=== PATIENT | female | born 1955 ===

== ENCOUNTER 2018-01-24 08:21 | Inpatient (IN) | payer MEDICAID, OTHER ==
[2018-01-24 08:23] VITALS: BMI 28.3
[2018-01-24 08:53] LABS: BASO # 0.1 K/uL (0.0-0.2); BASO % 0.7 % (0.0-2.0); EOS # 0.3 K/uL (0.0-0.7); EOS % 3.3 % (0.0-4.0); LYMPH # 3.5 K/uL (1.0-4.3); LYMPH % 37.2 % (20.0-40.0); MEAN CORPUSCULAR HEMOGLOBIN 24.4 pg (27.0-31.0); MEAN CORPUSCULAR HGB CONC 31.3 g/dL (33.0-37.0); MEAN PLATELET VOLUME 9.7 fL (7.2-11.7); MONO # 0.4 K/uL (0.0-0.8); MONO % 4.4 % (0.0-10.0); NEUT # 5.1 K/uL (1.8-7.0); NEUT % 54.4 % (50.0-75.0); RBC 4.91 Mil/uL (3.80-5.20); RED CELL DISTRIBUTION WIDTH 16.9 % (11.5-14.5); WHITE BLOOD COUNT 9.3 K/uL (4.8-10.8)
[2018-01-24 08:57] LABS: ABG ALLEN TEST POS; ARTERIAL BLOOD GAS HCO3 20.4 mmol/L (21-28); ARTERIAL BLOOD GAS O2 SAT 97.5 % (95-98); ARTERIAL BLOOD GAS PCO2 43 mm/Hg (35-45); ARTERIAL BLOOD GAS PH 7.29 (7.35-7.45); ARTERIAL BLOOD GAS PO2 88 mm/Hg (80-100)
--- NOTE | 2018-01-24 09:01 | C.PDOC ---
History Of Present Illness 62 y/o female presents to the ER complaining of left sided chest pain and shortness of breath which began when she woke up around 7:30 am. Patient states that she was recently admitted to [facility] approximately 1 month ago. Patient reports that she was evaluated by her physician, he told her that " something was wrong" and she underwent cardiac cath which she states was "fine". She also possibly underwent echo, states that they did an ultrasound but does not know the result. During transport, EMS noted that patient was in Aflutter, cardizem given. Denies having fever, chills, nausea, vomiting, and leg swellin g. Time Seen by Provider: 01/24/18 08:28 Chief Complaint (Nursing): Shortness Of Breath History Per: Patient History/Exam Limitations: no limitations Onset/Duration Of Symptoms: Hrs Current Symptoms Are (Timing): Still Present Severity: Moderate Past Medical History Reviewed: Historical Data, Nursing Documentation, Vital Signs Vital Signs: Last Vital Signs Temp 97.8 F 01/24/18 08:24 Pulse 112 H 01/24/18 08:35 Resp 26 H 01/24/18 08:35 BP 124/81 01/24/18 08:35 Pulse Ox 96 01/24/18 08:35 - Medical History PMH: Asthma, HTN Other Surgeries: Hx of surgeries Family History: States: No Known Family Hx - Social History Hx Alcohol Use: No Hx Substance Use: No Review Of Systems Except As Marked, All Systems Reviewed And Found Negative. Constitutional: Negative for: Fever, Chills Cardiovascular: Positive for: Chest Pain Respiratory: Positive for: Shortness of Breath. Negative for: Cough Gastrointestinal: Negative for: Nausea, Vomiting Physical Exam - Physical Exam Appears: Other (tachypneic, moderate respiratory distress) Skin: Normal Color, Warm, Dry Head: Atraumatic, Normacephalic Eye(s): bilateral: Normal Inspection Nose: Normal Oral Mucosa: Moist Neck: Supple Cardiovascular: Rhythm Irregular (tachyycardiac), No Murmur Respiratory: No Rales, Rhonchi (diffuse rhonchi), No Wheezing Gastrointestinal/Abdominal: Normal Exam, Soft, No Tenderness, No Guarding, No Rebound Extremity: No Swelling (leg swelling) Neurological/Psych: Oriented x3, Normal Speech ED Course And Treatment - Laboratory Results Result Diagrams: 01/24/18 08:42 01/24/18 08:42 ECG: Interpreted By Me, Viewed By Me ECG Rhythm: Sinus Tachycardia Interpretation Of ECG: Sinus Tachycardia with LBBB and no concordant ST changes Rate From EC O2 Sat by Pulse Oximetry: 96 (RA) Pulse Ox Interpretation: Normal - Other Rad CXR X-Ray: Viewed By Me, Read By Radiologist Interpretation: Date of service: 01/24/2018. HISTORY: chest pain. COMPARISON: No prior. FINDINGS: LUNGS: Right basilar opacity. Rule out developing pneumonia. Follow-up advised. No other abnormal opacity appreciated. PLEURA: No significant pleural effusion identified, no pneumothorax apparent. CARDIOVASCULAR: Normal. OSSEOUS STRUCTURES: No significant abnormalities. VISUALIZED UPPER ABDOMEN: Normal. OTHER FINDINGS: None. IMPRESSION: Right basilar opacity. Follow-up advised to rule out developing pneumonia. - CT Scan/US CT-Chest Other Rad Studies (CT/US): Read By Radiologist, Radiology Report Reviewed CT/US Interpretation: Date of service: 01/24/2018. CTA chest PE protocol. Indication: dyspnea, tachycardia, elevated d-dimer. Technique: Contiguous axial images were obtained through the chest with intravenous contrast en hancement. Sagittal and coronal reconstructions were generated and reviewed. This CT exam was performed using 1 or more of the following dose reduction techniques: Automated exposure control, adjustment of the MAA and/or kV according to patient size, and/or use of iterative reconstruction technique. IV contrast: 100 mL Visipaque IV. . Radiation dose (DLP): 574.11 MGy-cm. Comparison: Chest x-ray performed 01/24/18. Findings: Visualized portions of the inferior thyroid gland appear unremarkable. The mediastinal and hilar vascular structures appear within normal limits. The heart appears within normal limits of size. Mediastinal and hilar adenopathy measuring up to approximately 1.5 cm in short axis, subcarina. No significant atherosclerotic calcification or mural plaque of the aorta identified. No large central or segmental pulmonary embolus evident. Ground-glass bilateral patchy hazy infiltrates, most prominently involving the bilateral lower and upper lobes with relative sparing of the right middle lobe, suspicious for pneumonia. No pleural effusion. No pneumothorax. 5 mm right lower lobe ground-glass nodule (series 2, image 177). Limited visualized portions of the upper abdomen: Small hiatal hernia. Exophytic 2.5 cm right renal hypodense lesion measures approximately 21 HU, higher than expected for simple cyst. Mild left adrenal gland hypertrophy. Degenerative changes. Impression: No large central or segmental pulmonary embolus identified. Ground-glass patchy bilateral hazy infiltrates suspicious for multifocal pneumonia. Recommend follow-up to ensure complete resolution upon completion of treatment. 5 mm right lower lobe ground-glass nodule. Acco rding to the 2017 Fleischner criteria, no routine follow-up is recommended. Mediastinal and hilar adenopathy measuring up to approximately 1.5 cm in short axis, subcarina. Exophytic 2.5 cm right renal hypodense lesion measures approximately 21 HU, higher than expected for simple cyst. Suggest renal ultrasound for further evaluation. Left adrenal gland hypertrophy. Small hiatal hernia. Medical Decision Making Medical Decision Making: Plan: --Labs --EKG --CXR Labs and CXR done. 500cc NS bolus given. Elevated d-dimer noted, CTA chest done, negative for PE. Early PNA noted on CXR and CTA, zosyn ivpb x1 dose given. Blood cultures drawn prior to abx administration. HR improved to 90's. On re-eval patient states that she feels a little better, but fatigued. Case discussed with Dr. Rodriguez, hospitalist, who accepts patient for admission. Disposition - Disposition Disposition: HOSPITALIZED Disposition Time: 14:00 Condition: FAIR Forms: [facility] ([place]) - Clinical Impression Clinical Impression: Dyspnea, Pneumonia - Scribe Statement The provider has reviewed the documentation as recorded by the Maggie Lombardi Provider Attestation: All medical record entries made by the Bettyibfrandy were at my direction and personally dictated by me. I have reviewed the chart and agree that the record accurately reflects my personal performance of the history, physical exam, medical decision making, and the department course for this patient. I have also personally directed, reviewed, and agree with the discharge instructions and disposition.
[2018-01-24 09:04] LABS: PROTHROMBIN TIME 11.4 SECONDS (9.7-12.2)
--- NOTE | 2018-01-24 09:09 | RAD ---
Date of service: 01/24/2018 HISTORY: chest pain COMPARISON: No prior. FINDINGS: LUNGS: Right basilar opacity. Rule out developing pneumonia. Follow-up advised. No other abnormal opacity appreciated. PLEURA: No significant pleural effusion identified, no pneumothorax apparent. CARDIOVASCULAR: Normal. OSSEOUS STRUCTURES: No significant abnormalities. VISUALIZED UPPER ABDOMEN: Normal. OTHER FINDINGS: None. IMPRESSION: Right basilar opacity. Follow-up advised to rule out developing pneumonia.
[2018-01-24 09:11] LABS: ALB/GLOB RATIO 1.3 (1.0-2.1); ALT/SGPT 34 U/L (9-52); AST/SGOT 38 U/L (14-36); BLOOD UREA NITROGEN 24 mg/dL (7-17); CALCIUM 9.1 mg/dl (8.6-10.4); GFR NON-AFRICAN AMERICAN > 60
[2018-01-24 09:19] LABS: B-TYPE NATRIURETIC PEPTIDE 840 pg/mL (0-900)
[2018-01-24] MEDS ORDERED: Sodium Chloride 0.9% 500 ML IV ONE (09:20)
[2018-01-24] MEDS ORDERED: Iodixanol 320 MG/ML 100 ML BOTTLE IV ONE (12:25)
--- NOTE | 2018-01-24 13:01 | CT ---
Date of service: 01/24/2018 CTA chest PE protocol Indication: dyspnea, tachycardia, elevated d-dimer Technique: Contiguous axial images were obtained through the chest with intravenous contrast enhancement. Sagittal and coronal reconstructions were generated and reviewed. This CT exam was performed using 1 or more of the following dose reduction techniques: Automated exposure control, adjustment of the MAA and/or kV according to patient size, and/or use of iterative reconstruction technique. IV contrast: 100 mL Visipaque IV Radiation dose (DLP): 574.11 MGy-cm. Comparison: Chest x-ray performed 01/24/18 Findings: Visualized portions of the inferior thyroid gland appear unremarkable. The mediastinal and hilar vascular structures appear within normal limits. The heart appears within normal limits of size. Mediastinal and hilar adenopathy measuring up to approximately 1.5 cm in short axis, subcarina. No significant atherosclerotic calcification or mural plaque of the aorta identified. No large central or segmental pulmonary embolus evident. Ground-glass bilateral patchy hazy infiltrates, most prominently involving the bilateral lower and upper lobes with relative sparing of the right middle lobe, suspicious for pneumonia. No pleural effusion. No pneumothorax. 5 mm right lower lobe ground-glass nodule (series 2, image 177). Limited visualized portions of the upper abdomen: Small hiatal hernia. Exophytic 2.5 cm right renal hypodense lesion measures approximately 21 HU, higher than expected for simple cyst. Mild left adrenal gland hypertrophy. Degenerative changes. Impression: No large central or segmental pulmonary embolus identified. Ground-glass patchy bilateral hazy infiltrates suspicious for multifocal pneumonia. Recommend follow-up to ensure complete resolution upon completion of treatment. 5 mm right lower lobe ground-glass nodule. According to the 2017 Fleischner criteria, no routine follow-up is recommended. Mediastinal and hilar adenopathy measuring up to approximately 1.5 cm in short axis, subcarina. Exophytic 2.5 cm right renal hypodense lesion measures approximately 21 HU, higher than expected for simple cyst. Suggest renal ultrasound for further evaluation. Left adrenal gland hypertrophy. Small hiatal hernia.
[2018-01-24] MEDS ORDERED: Piperacillin/Tazobact 3.375 GM in Sodium Chloride 100 ML IVPB ONE (14:11)
[2018-01-24] MEDS ORDERED: Piperacillin/Tazobact 3.375 gm 100 ML IVPB ONE (15:24)
[2018-01-24] MEDS ORDERED: Piperacillin/Tazobact 3.375 GM in Sodium Chloride 100 ML IVPB SCH ×2 (15:45→20:00)
[2018-01-24 16:07] LABS: CK-MB 3.03 ng/mL (0.0-3.38); TROPONIN I 0.072 ng/mL (0.00-0.120)
--- NOTE | 2018-01-24 16:30 | CP.PCM.HP ---
<Gama Pat - Last Filed: 01/24/18 19:32> History of Present Illness - History of Present Illness History of Present Illness: PGY-1 H&P note for Dr John Bobo Service cc: chest pain, shortness of breath HPI: Patient is a 62 year old female with pmhx of asthma, MA x 2 who ca me to the ED for chest pain and shortness of that started about 7 am this morning while at home by herself. Patient states she was admitted for a similar presentation to [facility] on 01/06/18. Patient states she had an MA then as well, and she had a catheterization there, which she does not know what the results were. Patient was discharge after a week. Patient states today she felt short of breath at home after she came from using the toilet. Patient used her inhaler, and shortly started feeling chest pain. Patient states she does not remember what happened after that, reporting not knowing what hospital was she on, or remembering being transported here. Patient called son, who reached out to EMS, who discovered atrial flutter on site and provided cardizem . Patient admits feeling some headache, but no chest pain or shortness of breath at this time. Patient denies diaphoresis, dizziness, palpitations, nausea, vomiting, diarrhea, constipation, dysuria, hematuria, blood in the feces, changes in weight or appetite. PMD: Blade Ramos (former), currently does not have PMD Code status: full code, proxy: Wilmer Barton (son), advanced directive: none Allergies: NKDA Pmhx: Asthma, MA x2, HTN Shx: 2 csections, ovarian cyst removal Famhx: denies Sochx: denies tobacco use. Drinks one glass of wine with dinner ocassionally. denies illicit drug use. works as homemaker meds: none Present on Admission - Present on Admission Any Indicators Present on Admission: No Review of Systems - Review of Systems All systems: reviewed and no additional remarkable complaints except Review of Systems: as stated in HPI Past Patient History - Past Social History Smoking Status: Never Smoked - CARDIAC Hx Hypertension: Yes - PULMONARY Hx Asthma: Yes - PSYCHIATRIC Hx Substance Use: No - SURGICAL HISTORY Hx Surgeries: Yes Hx Cardiac Catheterization: Yes Hx Section: Yes (X2) Other/Comment: OVARIAN CYST REMOVAL Meds Allergies/Adverse Reactions: Allergies Allergy/AdvReac Type Severity Reaction Status Date / Time No Known Allergies Allergy Verified 01/24/18 08:33 Physical Exam - Constitutional Appears: Non-toxic, No Acute Distress - Head Exam Head Exam: ATRAUMATIC, NORMAL INSPECTION, NORMOCEPHALIC - Eye Exam Eye Exam: EOMI, Normal appearance Pupil Exam: NORMAL ACCOMODATION, PERRL - ENT Exam ENT Exam: Mucous Membranes Moist, Normal Exam - Neck Exam Neck exam: Positive for: Full Rom, Normal Inspection. Negative for: Lymphadenopathy, Tenderness, Thyromegaly - Respiratory Exam Respiratory Exam: Clear to Auscultation Bilateral, NORMAL BREATHING PATTERN. absent: Accessory Muscle Use, Rales, Rhonchi, Wheezes, Respiratory Distress - Cardiovascular Exam Cardiovascular Exam: Tachycardia, REGULAR RHYTHM, +S1, +S2 - GI/Abdominal Exam GI & Abdominal Exam: Normal Bowel Sounds, Soft. absent: Distended, Guarding, Rebound, Tenderness - Extremities Exam Extremities exam: Positive for: full ROM, normal inspection, pedal pulses present. Negative for: calf tenderness, pedal edema, tenderness - Back Exam Back exam: FULL ROM, NORMAL INSPECTION - Neurological Exam Neurological exam: Alert, CN II-XII Intact, Oriented x3 - Psychiatric Exam Psychiatric exam: Anxious, Normal Affect, Normal Mood - Skin Skin Exam: Dry, Intact, Normal Color, Warm Results - Vital Signs Recent Vital Signs: Last Vital Signs Temp 97.8 F 01/24/18 08:24 Pulse 82 01/24/18 13:42 Resp 22 01/24/18 13:42 BP 123/70 01/24/18 13:42 Pulse Ox 96 01/24/18 14:13 - Labs Result Diagrams: 01/24/18 08:42 01/24/18 08:42 Labs: Laboratory Results - last 24 hr 01/24/18 01/24/18 01/24/18 08:42 08:42 08:42 WBC 9.3 RBC 4.91 Hgb 12.0 Hct 38.3 MCV 78.0 L MCH 24.4 L MCHC 31.3 L RDW 16.9 H Plt Count 298 MPV 9.7 Neut % (Auto) 54.4 Lymph % (Auto) 37.2 [place] % (Auto) 4.4 Eos % (Auto) 3.3 Baso % (Auto) 0.7 Neut # (Auto) 5.1 Lymph # (Auto) 3.5 [place] # (Auto) 0.4 Eos # (Auto) 0.3 Baso # (Auto) 0.1 PT 11.4 INR 1.0 APTT 29 D-Dimer, Quantitative Puncture Site pCO2 pO2 HCO3 ABG pH ABG Total CO2 ABG O2 Saturation ABG Base Excess Jonathan Test ABG Potassium Glucose Lactate Liter Flow Sodium 140 Potassium 4.4 Chloride 103 Carbon Dioxide 23 Anion Gap 19 BUN 24 H Creatinine 0.8 Est GFR ( Amer) > 60 Est GFR (Non-Af Amer) > 60 Random Glucose 272 H Calcium 9.1 Phosphorus 7.0 H Magnesium 2.2 Total Bilirubin 0.3 AST 38 H ALT 34 Alkaline Phosphatase 63 Total Creatine Kinase CK-MB (Mass) Troponin I < 0.0120 NT-Pro-B Natriuret Pep 840 Total Protein 7.1 Albumin 4.0 Globulin 3.1 Albumin/Globulin Ratio 1.3 Free T4 Arterial Blood Potassium Influenza Typ A,B (EIA) 01/24/18 01/24/18 01/24/18 08:54 10:41 15:22 WBC RBC Hgb Hct MCV MCH MCHC RDW Plt Count MPV Neut % (Auto) Lymph % (Auto) [place] % (Auto) Eos % (Auto) Baso % (Auto) Neut # (Auto) Lymph # (Auto) [place] # (Auto) Eos # (Auto) Baso # (Auto) PT INR APTT D-Dimer, Quantitative 610 H Puncture Site Left radial pCO2 43 pO2 88 HCO3 20.4 L ABG pH 7.29 L ABG Total CO2 22.0 ABG O2 Saturation 97.5 ABG Base Excess -5.7 L Jonathan Test Pos ABG Potassium 3.6 Glucose 227 H Lactate 1.8 Liter Flow 2.0 Sodium 138.0 Potassium Chloride 107.0 Carbon Dioxide Anion Gap BUN Creatinine Est GFR ( Amer) Est GFR (Non-Af Amer) Random Glucose Calcium Phosphorus Magnesium Total Bilirubin AST ALT Alkaline Phosphatase Total Creatine Kinase CK-MB (Mass) Troponin I NT-Pro-B Natriuret Pep Total Protein Albumin Globulin Albumin/Globulin Ratio Free T4 Arterial Blood Potassium 3.6 Influenza Typ A,B (EIA) Negative for flu a/b 01/24/18 01/24/18 15:22 15:22 WBC RBC Hgb Hct MCV MCH MCHC RDW Plt Count MPV Neut % (Auto) Lymph % (Auto) [place] % (Auto) Eos % (Auto) Baso % (Auto) Neut # (Auto) Lymph # (Auto) [place] # (Auto) Eos # (Auto) Baso # (Auto) PT INR APTT D-Dimer, Quantitative Puncture Site pCO2 pO2 HCO3 ABG pH ABG Total CO2 ABG O2 Saturation ABG Base Excess Jonathan Test ABG Potassium Glucose Lactate Liter Flow Sodium Potassium Chloride Carbon Dioxide Anion Gap BUN Creatinine Est GFR ( Amer) Est GFR (Non-Af Amer) Random Glucose Calcium Phosphorus Magnesium Total Bilirubin AST ALT Alkaline Phosphatase Total Creatine Kinase 75 CK-MB (Mass) 3.03 Troponin I 0.0720 NT-Pro-B Natriuret Pep Total Protein Albumin Globulin Albumin/Globulin Ratio Free T4 1.09 Arterial Blood Potassium Influenza Typ A,B (EIA) Assessment & Plan - Assessment and Plan (Free Text) Assessment: Patient is 62 year old female with past medical history of asthma, MA who is admitted for chest pain, a-flutter and bilateral pneumonia based on CTA chest. Plan: Chest Pain * Troponin x1 negative * F/U troponin at 3pm and 9pm * EKG at ED: shows sinus tachycardia, Left bundle branch block * please check previous EKG on patient records from [facility] to r/o new LBBB * f/u EKG at 4:00pm and 10:00pm * Cardiology Consult - Dr Holden - help is appreciated, will follow up recs * Lipid panel - f/u * Hgb A1C - f/u * f/u echo * Get records on previous test from [facility] from previous admission A-flutter * found by EMS, cardizem provided by EMS * CHADS2-VASC score of 2 * f/u TSH stat * f/u T4 STAT * f/u UDS * f/u Dr holden recs - start lovenox 80mg sc Q12h possible LOC * r/o trauma to head * CT head w/o contrast STAT - negative shortness of breath, 2/2 B/L Pneumonia, probable Health care associated pneumonia (HCAP) with increased risk for MDR * chest xray - rt basilar opacity, r/o developing pneumonia, no pneumothorax * CTA chest - no embolus, ground glass patchy bilateral infiltrates, suspect multifocal pneumonia. mediastinal and hilar adenopathy 1.5 cm * Zosyn x1 dose given in ER * Start Zosyn 3.375gm IVPB Q6hrs, to be given 6 hours after dose in ER * Start Avelox 400mg IVPB Q24hrs * Start Vanco 1gm IVPB Q12hrs * ID consult - Dr Yg Moran - help is appreciated - will follow up recs * rapid flu test - f/u R renal lesion * simple cyst 2.5 cm on CTA * B/L renal U/S - f/u solitary nodule lung * 5mm lower lobe ground glass nodule * patient is nonsmoker Elevated D -Dimer r/o DVT, PE * d-dimer 610 * CTA shows no evidence of PE * f/u venous doppler LE B/L Abnormal RBC indices * hemoglobin on admission: 12.0 * MCV 78, MCH: 24.4, MCHC 31.3, RDW: 16.9 * f/u total iron, TIBC, % saturation, Ferritin * stool guaic negative * as per patient, no previous colonoscopy - adviced patient to get colonoscopy outpatient PPX * Lactobacillus BID after two hours of antibiotics * tylenol 650mg PO Q6hrs PRN for fever * DVT risk score of 3 - lovenox 80mg SC BID * Heart healthy diet * Patient not to be given influenza and pneumonia vaccinations DISPO: Patient initially refused to sign release form to obtain medical records from her previous admission at [facility] after explaining the purpose and the importance for patient's medical management during current hospitalization. Patient stated that she wanted to discuss with son before signing release form and did not feel sure of releasing her information. Patient was re visited later, son Wilmer Barton was found by bedside. After discussing with son and patient, patient agreed to sign release form. Consent was given to Dr John Bobo who will follow up to obtain medical records from patient's admission at [facility]. Plan discussed with Dr John Pat, PGY-1 - Date & Time Date: 01/24/18 Time: 17:08 <John Bobo - Last Filed: 01/27/18 19:47> Results - Vital Signs Recent Vital Signs: Last Vital Signs Temp 98 F 01/27/18 15:30 Pulse 62 01/27/18 18:00 Resp 20 01/27/18 15:30 BP 136/81 01/27/18 15:30 Pulse Ox 97 01/27/18 15:30 - Labs Result Diagrams: 01/27/18 08:30 01/27/18 08:30 Labs: Laboratory Results - last 24 hr 01/27/18 01/27/18 01/27/18 08:30 08:30 08:30 WBC 4.6 L RBC 4.57 Hgb 11.1 Hct 35.2 MCV 76.9 L MCH 24.3 L MCHC 31.5 L RDW 16.7 H Plt Count 260 MPV 9.5 Neut % (Auto) 57.2 Lymph % (Auto) 25.2 [place] % (Auto) 6.5 Eos % (Auto) 10.8 H Baso % (Auto) 0.3 Neut # (Auto) 2.6 Lymph # (Auto) 1.1 [place] # (Auto) 0.3 Eos # (Auto) 0.5 Baso # (Auto) 0.0 Retic Count 1.5 Sodium 142 Potassium 3.7 Chloride 103 Carbon Dioxide 29 Anion Gap 14 BUN 17 Creatinine 0.8 Est GFR ( Amer) > 60 Est GFR (Non-Af Amer) > 60 Random Glucose 82 Calcium 9.5 Phosphorus 4.8 H Magnesium 2.0 Total Bilirubin 0.3 AST 32 ALT 35 Alkaline Phosphatase 50 Total Protein 6.8 Albumin 3.8 Globulin 3.0 Albumin/Globulin Ratio 1.2 Vitamin B12 651 Folate 8.3 Attending/Attestation - Attestation I have personally seen and examined this patient.: Yes I have fully participated in the care of the patient.: Yes I have reviewed all pertinent clinical information: Yes Notes (Text): 01/27/18 19:47 This is a late entry. History, physical, assessment and plan, and orders were gone over with resident Dr. Pat at the time of admission. John Bobo D.O.
[2018-01-24 16:51] LABS: BARBITURATES, UR NEGATIVE (NEGATIVE); BENZODIAZEPINES, UR NEGATIVE (NEGATIVE); OPIATES, UR NEGATIVE (NEGATIVE); PHENCYCLIDINE, UR NEGATIVE (NEGATIVE)
--- NOTE | 2018-01-24 16:57 | US ---
Date of service: 01/24/2018 PROCEDURE: Ultrasound of the Kidneys HISTORY: right exophytic lesion COMPARISON: None available. TECHNIQUE: Sonogram of the kidneys. FINDINGS: RIGHT KIDNEY: Measures: 11.6 x 4.6 x 4.9 cm. Right kidney appears normal in size and overall contour with a simple cyst identified at the upper pole measuring 1.4 x 1.7 x 1.3 cm. Corticomedullary differentiation is limited and element of intrinsic medical renal disease is not excluded. No stone, solid mass lesion or hydronephrosis visualized. LEFT KIDNEY: Measures: 10.8 x 6.0 x 5.4 cm. Left kidney also appears normal in overall size with upper pole simple cyst measuring 3.1 x 3.1 x 4.3 cm. No additional parenchymal lesion is appreciable. There is also poor corticomedullary differentiation at the left kidney which may indicate intrinsic medical renal disease. There is an exophytic cyst seen related to the midpole left kidney measuring 3.3 x 2.3 cm corresponding to the CT finding. No stone, solid mass lesion or hydronephrosis visualized. OTHER FINDINGS: The abdominal aorta appears patent. IMPRESSION: No obstructive uropathy bilaterally although simple cyst identified in the bilateral upper pole kidneys. Exophytic simple cyst is seen related to the left kidney corresponding to CT finding also identified 01/24/2018. Limited corticomedullary differentiation may reflect intrinsic medical renal disease.
--- NOTE | 2018-01-24 17:06 | CT ---
Date of service: 01/24/2018 PROCEDURE: CT HEAD WITHOUT CONTRAST. HISTORY: questionable hx of LOC COMPARISON: None available. TECHNIQUE: Axial computed tomography images were obtained through the head/brain without intravenous contrast. Radiation dose: Total exam DLP = 880.37 mGy-cm. This CT exam was performed using one or more of the following dose reduction techniques: Automated exposure control, adjustment of the mA and/or kV according to patient size, and/or use of iterative reconstruction technique. FINDINGS: HEMORRHAGE: No intracranial hemorrhage. BRAIN: Normal lewis-white matter differentiation and density are appreciated throughout the cerebrum and cerebellum with the brainstem appearing unremarkable as well. There is no mass effect. There is no suspicious extra-axial fluid collection and the midline brain anatomy appears diffusely unremarkable. VENTRICLES: Unremarkable. No hydrocephalus. CALVARIUM: Unremarkable. PARANASAL SINUSES: Unremarkable as visualized. No significant inflammatory changes. MASTOID AIR CELLS: Unremarkable as visualized. No inflammatory changes. OTHER FINDINGS: None. IMPRESSION: Unremarkable noncontrast head CT.
[2018-01-24] MEDS: Moxifloxacin IV 400mg/250ml NS 400 MG/250 ML BAG IVPB SCH (17:58)
[2018-01-24] MEDS ORDERED: Enoxaparin 40 mg Syringe SC SCH ×2 (18:00→18:15)
[2018-01-24 18:29] LABS: STREP PNEUMONIAE NEGATIVE (NEGATIVE)
[2018-01-24] MEDS: Lactobacillus Acidophilus 500 MU Cap PO SCH (19:06)
[2018-01-24] MEDS: Enoxaparin 80 mg Syringe SC SCH (19:43)
[2018-01-24] MEDS: Piperacillin/Tazobact 3.375 GM in Sodium Chloride 100 ML IVPB SCH (19:44)
[2018-01-24 21:21] LABS: CK-MB 2.73 ng/mL (0.0-3.38); TROPONIN I 0.077 ng/mL (0.00-0.120)
[2018-01-24] MEDS: Ipratropium 0.02% Inhal Soln (0.5 mg/2.5 ml) UD IH PRN (22:06)
[2018-01-25] MEDS: Piperacillin/Tazobact 3.375 GM in Sodium Chloride 100 ML IVPB SCH ×4 (01:42→20:42)
[2018-01-25] MEDS: Enoxaparin 80 mg Syringe SC SCH ×2 (06:07→18:54)
--- NOTE | 2018-01-25 08:30 | CP.PCM.CON ---
History of Present Illness - History of Present Illness History of Present Illness: CC chest pain HPI Patient is a 62 year old female with pmhx of asthma, MN x 2 who came to the ED for chest pain and shortness of that started about 7 am this morning while at home by herself. Patient states she was admitted for a similar presentation to [facility] on 01/06/18. Patient states she had an MN then as well, and she had a catheterization there, which she does not know what the results were. Patient was discharge after a week. Patient states today she felt short of breath at home after she came from using the toilet. Patient used her inhaler, and shortly started feeling chest pain. Patient states she does not remember what happened after that, reporting not knowing what hospital was she on, or remembering being transported here. Patient called son, who reached out to EMS, who discovered atrial flutter on site and provided cardizem . Patient admits feeling some headache, but no chest pain or shortness of breath at this time. Patient denies diaphoresis, dizziness, palpitations, nausea, vom iting, diarrhea, constipation, dysuria, hematuria, blood in the feces, changes in weight or appetite. Review of Systems - Cardiovascular Cardiovascular: Chest Pain, Dyspnea on Exertion. absent: Leg Edema - Respiratory Respiratory: Dyspnea on Exertion - Gastrointestinal Gastrointestinal: absent: Abdominal Pain - Musculoskeletal Musculoskeletal: absent: Joint Swelling, Muscle Cramps Past Patient History - Past Medical History & Family History Past Medical History?: Yes - Past Social History Smoking Status: Never Smoked - CARDIAC Hx Hypertension: Yes - PULMONARY Hx Asthma: Yes - NEUROLOGICAL Hx Neurological Disorder: No - HEENT Hx HEENT Problems: No - RENAL Hx Chronic Kidney Disease: No - ENDOCRINE/METABOLIC Hx Endocrine Disorders: No - HEMATOLOGICAL/ONCOLOGICAL Hx Blood Disorders: No - INTEGUMENTARY Hx Dermatological Problems: No - MUSCULOSKELETAL/RHEUMATOLOGICAL Hx Musculoskeletal Disorders: No Hx Falls: No - GASTROINTESTINAL Hx Gastrointestinal Disorders: No - GENITOURINARY/GYNECOLOGICAL Hx Genitourinary Disorders: No - PSYCHIATRIC Hx Substance Use: No - SURGICAL HISTORY Hx Surgeries: Yes Hx Cardiac Catheterization: Yes Hx Section: Yes (X2) Other/Comment: OVARIAN CYST REMOVAL - ANESTHESIA Hx Anesthesia: Yes Hx Anesthesia Reactions: No Hx Malignant Hyperthermia: No Has any member of the family had a problem w/ anesthesia?: No Meds Allergies/Adverse Reactions: Allergies Allergy/AdvReac Type Severity Reaction Status Date / Time No Known Allergies Allergy Verified 01/24/18 08:33 - Medications Medications: Current Medications Acetaminophen (Tylenol 325mg Tab) 650 mg PO Q6 PRN PRN Reason: Pain, moderate (4-7) Enoxaparin Sodium (Lovenox) 80 mg SC Q12H JERONIMO Last Admin: 01/25/18 06:07 Dose: 80 mg Moxifloxacin HCl (Avelox Iv 400mg/250ml Ns) 400 mg in 250 mls @ 167 mls/hr IVPB Q24H JERONIMO; Protocol Last Admin: 01/24/18 17:58 Dose: 167 mls/hr Vancomycin HCl 1,000 mg/ (Sodium Chloride) 250 mls @ 166.6 mls/hr IVPB Q12H JERONIMO; Protocol Last Admin: 01/25/18 05:29 Dose: 166.6 mls/hr Piperacillin Sod/Tazobactam (Sod 3.375 gm/ Sodium Chloride) 100 mls @ 200 mls/ hr IVPB Q6H JERONIMO; Protocol Last Admin: 01/25/18 01:42 Dose: 200 mls/hr Ipratropium [place] (Atrovent) 0.5 mg IH RQ6 PRN PRN Reason: Shortness of Breath Last Admin: 01/24/18 22:06 Dose: 0.5 mg Lactobacillus Acidophilus (Bacid Acidophilus) 1 cap PO BID JERONIMO Last Admin: 01/24/18 19:06 Dose: Not Given Physical Exam - Constitutional Appears: No Acute Distress - Eye Exam Eye Exam: absent: Scleral icterus - ENT Exam ENT Exam: Mucous Membranes Moist - Neck Exam Neck exam: Positive for: Full Rom - Respiratory Exam Respiratory Exam: NORMAL BREATHING PATTERN - Cardiovascular Exam Cardiovascular Exam: REGULAR RHYTHM - GI/Abdominal Exam GI & Abdominal Exam: Soft - Extremities Exam Extremities exam: Positive for: normal inspection. Negative for: pedal edema - Neurological Exam Neurological exam: Alert Results - Vital Signs Recent Vital Signs: Last Vital Signs Temp 98.4 F 01/25/18 00:00 Pulse 73 01/25/18 00:00 Resp 20 01/25/18 00:00 BP 112/71 01/25/18 00:00 Pulse Ox 100 01/25/18 00:00 - Labs Result Diagrams: 01/27/18 08:30 01/27/18 08:30 Labs: Laboratory Results - last 24 hr 01/24/18 01/24/18 01/24/18 08:42 08:42 08:42 WBC 9.3 RBC 4.91 Hgb 12.0 Hct 38.3 MCV 78.0 L MCH 24.4 L MCHC 31.3 L RDW 16.9 H Plt Count 298 MPV 9.7 Neut % (Auto) 54.4 Lymph % (Auto) 37.2 [place] % (Auto) 4.4 Eos % (Auto) 3.3 Baso % (Auto) 0.7 Neut # (Auto) 5.1 Lymph # (Auto) 3.5 [place] # (Auto) 0.4 Eos # (Auto) 0.3 Baso # (Auto) 0.1 PT 11.4 INR 1.0 APTT 29 D-Dimer, Quantitative Puncture Site pCO2 pO2 HCO3 ABG pH ABG Total CO2 ABG O2 Saturation ABG Base Excess Jonathan Test ABG Potassium Glucose Lactate Liter Flow Sodium 140 Potassium 4.4 Chloride 103 Carbon Dioxide 23 Anion Gap 19 BUN 24 H Creatinine 0.8 Est GFR ( Amer) > 60 Est GFR (Non-Af Amer) > 60 Random Glucose 272 H Calcium 9.1 Phosphorus 7.0 H Magnesium 2.2 Total Bilirubin 0.3 AST 38 H ALT 34 Alkaline Phosphatase 63 Total Creatine Kinase CK-MB (Mass) Troponin I < 0.0120 NT-Pro-B Natriuret Pep 840 Total Protein 7.1 Albumin 4.0 Globulin 3.1 Albumin/Globulin Ratio 1.3 Free T4 TSH 3rd Generation Arterial Blood Potassium Urine Opiates Screen Urine Methadone Screen Ur Barbiturates Screen Ur Phencyclidine Scrn Ur Amphetamines Screen U Benzodiazepines Scrn U Oth Cocaine Metabols U Cannabinoids Screen Influenza Typ A,B (EIA) Ur L.pneumophila Ag S. pneumoniae Antigen 01/24/18 01/24/18 01/24/18 08:54 10:41 14:02 WBC RBC Hgb Hct MCV MCH MCHC RDW Plt Count MPV Neut % (Auto) Lymph % (Auto) [place] % (Auto) Eos % (Auto) Baso % (Auto) Neut # (Auto) Lymph # (Auto) [place] # (Auto) Eos # (Auto) Baso # (Auto) PT INR APTT D-Dimer, Quantitative 610 H Puncture Site Left radial pCO2 43 pO2 88 HCO3 20.4 L ABG pH 7.29 L ABG Total CO2 22.0 ABG O2 Saturation 97.5 ABG Base Excess -5.7 L Jonathan Test Pos ABG Potassium 3.6 Glucose 227 H Lactate 1.8 Liter Flow 2.0 Sodium 138.0 Potassium Chloride 107.0 Carbon Dioxide Anion Gap BUN Creatinine Est GFR ( Amer) Est GFR (Non-Af Amer) Random Glucose Calcium Phosphorus Magnesium Total Bilirubin AST ALT Alkaline Phosphatase Total Creatine Kinase CK-MB (Mass) Troponin I NT-Pro-B Natriuret Pep Total Protein Albumin Globulin Albumin/Globulin Ratio Free T4 TSH 3rd Generation Arterial Blood Potassium 3.6 Urine Opiates Screen Urine Methadone Screen Ur Barbiturates Screen Ur Phencyclidine Scrn Ur Amphetamines Screen U Benzodiazepines Scrn U Oth Cocaine Metabols U Cannabinoids Screen Influenza Typ A,B (EIA) Ur L.pneumophila Ag S. pneumoniae Antigen Negative 01/24/18 01/24/18 01/24/18 15:22 15:22 15:22 WBC RBC Hgb Hct MCV MCH MCHC RDW Plt Count MPV Neut % (Auto) Lymph % (Auto) [place] % (Auto) Eos % (Auto) Baso % (Auto) Neut # (Auto) Lymph # (Auto) [place] # (Auto) Eos # (Auto) Baso # (Auto) PT INR APTT D-Dimer, Quantitative Puncture Site pCO2 pO2 HCO3 ABG pH ABG Total CO2 ABG O2 Saturation ABG Base Excess Jonathan Test ABG Potassium Glucose Lactate Liter Flow Sodium Potassium Chloride Carbon Dioxide Anion Gap BUN Creatinine Est GFR ( Amer) Est GFR (Non-Af Amer) Random Glucose Calcium Phosphorus Magnesium Total Bilirubin AST ALT Alkaline Phosphatase Total Creatine Kinase 75 CK-MB (Mass) 3.03 Troponin I 0.0720 NT-Pro-B Natriuret Pep Total Protein Albumin Globulin Albumin/Globulin Ratio Free T4 1.09 TSH 3rd Generation 1.13 Arterial Blood Potassium Urine Opiates Screen Urine Methadone Screen Ur Barbiturates Screen Ur Phencyclidine Scrn Ur Amphetamines Screen U Benzodiazepines Scrn U Oth Cocaine Metabols U Cannabinoids Screen Influenza Typ A,B (EIA) Negative for flu a/b Ur L.pneumophila Ag S. pneumoniae Antigen 01/24/18 01/24/18 01/24/18 16:20 16:20 20:54 WBC RBC Hgb Hct MCV MCH MCHC RDW Plt Count MPV Neut % (Auto) Lymph % (Auto) [place] % (Auto) Eos % (Auto) Baso % (Auto) Neut # (Auto) Lymph # (Auto) [place] # (Auto) Eos # (Auto) Baso # (Auto) PT INR APTT D-Dimer, Quantitative Puncture Site pCO2 pO2 HCO3 ABG pH ABG Total CO2 ABG O2 Saturation ABG Base Excess Jonathan Test ABG Potassium Glucose Lactate Liter Flow Sodium Potassium Chloride Carbon Dioxide Anion Gap BUN Creatinine Est GFR ( Amer) Est GFR (Non-Af Amer) Random Glucose Calcium Phosphorus Magnesium Total Bilirubin AST ALT Alkaline Phosphatase Total Creatine Kinase 76 CK-MB (Mass) 2.73 Troponin I 0.0770 NT-Pro-B Natriuret Pep Total Protein Albumin Globulin Albumin/Globulin Ratio Free T4 TSH 3rd Generation Arterial Blood Potassium Urine Opiates Screen Negative Urine Methadone Screen Negative Ur Barbiturates Screen Negative Ur Phencyclidine Scrn Negative Ur Amphetamines Screen Negative U Benzodiazepines Scrn Negative U Oth Cocaine Metabols Negative U Cannabinoids Screen Negative Influenza Typ A,B (EIA) Ur L.pneumophila Ag Negative S. pneumoniae Antigen Assessment & Plan - Assessment and Plan (Free Text) Assessment: Bilateral pneumonia ACS Aflutter??? No ekg documentation to support this arrhythmia Plan: trops q6h x 3 echo full anticoagulation Cont medical therapy for now review chart from [facility] Case discussed with resident and Dr John Bobo(attending) - Date & Time Date: 01/25/18 Time: 08:30
[2018-01-25] MEDS: Lactobacillus Acidophilus 500 MU Cap PO SCH ×2 (09:57→18:54)
[2018-01-25] MEDS ORDERED: Albuterol HFA 90 mcg/actuation (8 g) INH PRN (11:11)
--- NOTE | 2018-01-25 11:27 | CP.PCM.PN ---
<Matthew Sanders - Last Filed: 01/25/18 17:19> Subjective - Date & Time of Evaluation Date of Evaluation: 01/25/18 Time of Evaluation: 09:40 - Subjective Subjective: Medicine Progress Note for Hospitalist Service Pt seen and examined at bedside this am. States she has substernal chest pain reproducible on exam, but states that it is much improved since yesterday. Currently on nasal cannula, states that it is helping with her shortness of breath. No acute events reported overnight. Admits to feeling chills, but denies fever, headache, n/v/d/c, abd pain, urinary complaints, leg edema or other symptoms. Pt had echo done this am. Objective - Vital Signs/Intake and Output Vital Signs (last 24 hours): Temp Pulse Resp BP Pulse Ox 98.1 F 74 20 122/73 97 01/25/18 08:42 01/25/18 08:42 01/25/18 08:42 01/25/18 08:42 01/25/18 08:42 - Medications Medications: Current Medications Acetaminophen (Tylenol 325mg Tab) 650 mg PO Q6 PRN PRN Reason: Pain, moderate (4-7) Albuterol (Ventolin Hfa 90 Mcg/Actuation (8 G)) 1 puff INH RQ6 PRN PRN Reason: Shortness of Breath Enoxaparin Sodium (Lovenox) 80 mg SC Q12H JERONIMO Last Admin: 01/25/18 06:07 Dose: 80 mg Moxifloxacin HCl (Avelox Iv 400mg/250ml Ns) 400 mg in 250 mls @ 167 mls/hr IVPB Q24H JERONIMO; Protocol Last Admin: 01/24/18 17:58 Dose: 167 mls/hr Vancomycin HCl 1,000 mg/ (Sodium Chloride) 250 mls @ 166.6 mls/hr IVPB Q12H JERONIMO; Protocol Last Admin: 01/25/18 05:29 Dose: 166.6 mls/hr Piperacillin Sod/Tazobactam (Sod 3.375 gm/ Sodium Chloride) 100 mls @ 200 mls/hr IVPB Q6H JERONIMO; Protocol Last Admin: 01/25/18 09:57 Dose: 200 mls/hr Ipratropium [place] (Atrovent) 0.5 mg IH RQ6 PRN PRN Reason: Shortness of Breath Last Admin: 01/24/18 22:06 Dose: 0.5 mg Lactobacillus Acidophilus (Bacid Acidophilus) 1 cap PO BID JERONIMO Last Admin: 01/25/18 09:57 Dose: 1 cap - Labs Labs: 01/24/18 08:42 01/24/18 08:42 PT 11.4 SECONDS (9.7-12.2) 01/24/18 08:42 INR 1.0 01/24/18 08:42 APTT 29 SECONDS (21-34) 01/24/18 08:42 - Constitutional Appears: Non-toxic, No Acute Distress - Head Exam Head Exam: ATRAUMATIC, NORMOCEPHALIC - Eye Exam Eye Exam: EOMI, Normal appearance, PERRL - ENT Exam ENT Exam: Mucous Membranes Moist - Respiratory Exam Respiratory Exam: Clear to Ausculation Bilateral, Rales, NORMAL BREATHING PATTERN. absent: Rhonchi, Wheezes Additional comments: Mild rales/crackles heard in lower lung antonio b/l - Cardiovascular Exam Cardiovascular Exam: REGULAR RHYTHM, +S1, +S2. absent: Gallop, Rubs, Murmur - GI/Abdominal Exam GI & Abdominal Exam: Soft, Normal Bowel Sounds. absent: Distended, Firm, Guarding, Rigid, Tenderness, Organomegaly, Rebound - Neurological Exam Neurological Exam: Alert, Awake, CN II-XII Intact, Oriented x3 - Psychiatric Exam Psychiatric exam: Normal Affect, Normal Mood - Skin Skin Exam: Dry, Intact, Normal Color, Warm Assessment and Plan - Assessment and Plan (Free Text) Assessment: 62 year old female with past medical history of asthma, [place] x2, who is admitted for chest pain, s/p episode of a-flutter s/p cardizem tx as per EMS, and bilateral pneumonia. Plan: Chest Pain Troponin x3 stable EKG at ED: shows sinus tachycardia, Left bundle branch block; repeat EKG this am demonstrates no acute changes Will check previous EKG on patient records from [facility] to r/o new LBBB Cardiology Consulted - Dr Holden, recs appreciated Hgb A1C ordered Echo done today, f/u results Get records on previous test from [facility] from previous admission A-flutter Found by EMS, cardizem provided by EMS CHADS2-VASC score of 2 TSH, T4 wnl UDS neg F/u Dr holden recs - c/w lovenox 80mg sc Q12h Possible LOC R/o trauma to head CT head w/o contrast STAT - negative Pt AAOx3 this am, no acute distress, doing well Shortness of breath, 2/2 B/L Pneumonia, probable Health care associated pneumonia (HCAP) with increased risk for MDR Chest xray - rt basilar opacity, r/o developing pneumonia, no pneumothorax CTA chest - no embolus, ground glass patchy bilateral infiltrates, suspect multifocal pneumonia. mediastinal and hilar adenopathy 1.5 cm Zosyn x1 dose given in ER C/w Zosyn 3.375gm IVPB Q6hrs, to be given 6 hours after dose in ER C/w Avelox 400mg IVPB Q24hrs C/w Vanco 1gm IVPB Q12hrs ID consult - Dr Moran, recs appreciated Rapid flu test neg, S. pneumo and Legionella Ag neg R renal lesion Simple cyst 2.5 cm on CTA B/L renal U/S: no obstructive uropathy b/l although simple cyst identified in b/l upper pole kidneys, exophytic simple cyst seen related to L kidney corresponding to CT finding also identified 01/24/18; limited corticomedullary differentiation may reflect intrinsic renal disease Solitary nodule lung 5mm lower lobe ground glass nodule patient is nonsmoker Elevated D -Dimer r/o DVT, PE d-dimer 610 CTA shows no evidence of PE f/u venous doppler LE B/L Abnormal RBC indices hemoglobin on admission: 12.0 MCV 78, MCH: 24.4, MCHC 31.3, RDW: 16.9 F/u total iron, TIBC, % saturation, Ferritin Stool guaic negative As per patient, no previous colonoscopy - adviced patient to get colonoscopy outpatient PPX Lactobacillus BID after two hours of antibiotics tylenol 650mg PO Q6hrs PRN for fever DVT risk score of 3 - lovenox 80mg SC BID Heart healthy diet Patient not to be given influenza and pneumonia vaccinations Dispo: awaiting fax of records from [facility] in regards to pt's recent admission in Dec 2017. Pt seen, examined with, and plan d/w Dr. Bobo, attending physician. Matthew Sanders DO PGY-1, Dispatcher [employer] Pager #[phone] <John Bobo - Last Filed: 01/25/18 19:18> Objective - Vital Signs/Intake and Output Vital Signs (last 24 hours): Temp Pulse Resp BP Pulse Ox 97.8 F 71 18 118/71 100 01/25/18 15:00 01/25/18 15:00 01/25/18 15:00 01/25/18 15:00 01/25/18 15:00 - Medications Medications: Current Medications Acetaminophen (Tylenol 325mg Tab) 650 mg PO Q6 PRN PRN Reason: Pain, moderate (4-7) Albuterol (Ventolin Hfa 90 Mcg/Actuation (8 G)) 1 puff INH RQ6 PRN PRN Reason: Shortness of Breath Enoxaparin Sodium (Lovenox) 80 mg SC Q12H JERONIMO Last Admin: 01/25/18 18:54 Dose: 80 mg Moxifloxacin HCl (Avelox Iv 400mg/250ml Ns) 400 mg in 250 mls @ 167 mls/hr IVPB Q24H JERONIMO; Protocol Last Admin: 01/25/18 16:05 Dose: 167 mls/hr Vancomycin HCl 1,000 mg/ (Sodium Chloride) 250 mls @ 166.6 mls/hr IVPB Q12H JERONIMO; Protocol Last Admin: 01/25/18 18:55 Dose: 166.6 mls/hr Piperacillin Sod/Tazobactam (Sod 3.375 gm/ Sodium Chloride) 100 mls @ 200 mls/ hr IVPB Q6H JERONIMO; Protocol Last Admin: 01/25/18 13:51 Dose: 200 mls/hr Ipratropium [place] (Atrovent) 0.5 mg IH RQ6 PRN PRN Reason: Shortness of Breath Last Admin: 01/24/18 22:06 Dose: 0.5 mg Lactobacillus Acidophilus (Bacid Acidophilus) 1 cap PO BID JERONIMO Last Admin: 01/25/18 18:54 Dose: 1 cap - Labs Labs: 01/25/18 11:12 01/25/18 11:12 PT 11.4 SECONDS (9.7-12.2) 01/24/18 08:42 INR 1.0 01/24/18 08:42 APTT 29 SECONDS (21-34) 01/24/18 08:42 Attending/Attestation - Attestation I have personally seen and examined this patient.: Yes I have fully participated in the care of the patient.: Yes I have reviewed all pertinent clinical information, including history, physical exam and plan: Yes Notes (Text): 01/25/18 19:09 Patient was seen and examined at 11:00 AM 01/25/18 with Persian translation provided by Nurse Esthela Care of this patient was gone over in detail with the resident. Upon Full ROS Some epigastric pain nonradiating NO n/v/d/c NO chest pain/palpitations NO SOB/Cough/Wheezing NO burning/pain with urination NO paresthesias NO headaches/dizziness NO edema NO new changes in vision NO new changes in hearing Also on Exam: General: AAOx3, NAD HEENT: NCA, EOMI, NO cervical/supraclavicular/submandibular lymphadenopathy, NO pharyngeal erythema/exudate, NO thyromegaly Cardio: NS1, NS2, NO M/R/G Resp: CTA B/L, NO R/R/W GI: BSX4 are present, ND, NT to palpation at the time of my exam and no pain with deep palpation in the epigastric area, NO guarding/rebound tenderness, NO HSM Ext: Pulses are strong and equal, Capillary Refill is 2 seconds, NO edema Neuro: CN II through XII are grossly intact Assessments: 1). Chest Pain with recent Hx of Cardiac Catheterization 2). Atrial Flutter 3). Bilateral Pneumonia 4). Exophytic Renal Lesion 5). 5 mm Lung Nodule in NonSmoker 6). Elevated D-Dimer 7). Abnormal RBC Indices 8). Hx Asthma Spoke with Akash at [facility] and faxed over records release form to [phone] and provided him with fax number for [phone] and we are awaiting medical records. Management as discussed with and gone over with resident above. John Bobo D.O.
[2018-01-25 11:29] LABS: EOS # 0.3 K/uL (0.0-0.7); LYMPH # 1.1 K/uL (1.0-4.3); MONO # 0.3 K/uL (0.0-0.8); MONO % 5.3 % (0.0-10.0)
[2018-01-25 11:38] LABS: BASO % 0.2 % (0.0-2.0); EOS % 5.1 % (0.0-4.0); LYMPH % 18.4 % (20.0-40.0); MEAN CELL VOLUME 77.6 fL (81.0-99.0); MEAN CORPUSCULAR HEMOGLOBIN 24.4 pg (27.0-31.0); MEAN CORPUSCULAR HGB CONC 31.5 g/dL (33.0-37.0); MEAN PLATELET VOLUME 9.5 fL (7.2-11.7); NEUT # 4.3 K/uL (1.8-7.0); NRBC % 0.1 % (0.0-2.0); RBC 4.09 Mil/uL (3.80-5.20); RED CELL DISTRIBUTION WIDTH 16.8 % (11.5-14.5); WHITE BLOOD COUNT 6.1 K/uL (4.8-10.8)
--- NOTE | 2018-01-25 11:51 | VASCLAB ---
Date of service: 01/24/2018 PROCEDURE: Lower Extremity Venous Duplex Exam. HISTORY: Elevated D-dimer PRIORS: None. TECHNIQUE: Bilateral common femoral, femoral, popliteal and posterior tibial, peroneal and great saphenous veins were evaluated. Flow was assessed with color Doppler, compressibility, assessment of phasic flow and augmentation response. Report prepared by Everardo Valdovinos, BS, RVT FINDINGS: RIGHT: 1. Common Femoral Vein: 1.1. Compressibility - Fully compressible: Thrombus - None : Flow - Phasic: Augmentation -Normal: Reflux - None. 2. Femoral Vein: 2.1. Compressibility - Fully compressible: Thrombus - None : Flow - Phasic: Augmentation -Normal: Reflux - None. 3. Popliteal Vein: 3.1. Compressibility - Fully compressible: Thrombus - None : Flow - Phasic: Augmentation -Normal: Reflux - None. 4. Posterior Tibial Vein: 4.1. Compressibility - Fully compressible: Thrombus - None: Flow - Phasic: Augmentation -Normal: Reflux - None. 5. Peroneal Vein: 5.1. Compressibility - Fully compressible: Thrombus - None: Flow - Phasic: Augmentation -Normal: Reflux - None. 6. Great Saphenous Vein: 6.1. Compressibility - Fully compressible: Thrombus - None: Flow - Phasic: Augmentation - Normal: Reflux - None. LEFT: 1. Common Femoral Vein: 1.1. Compressibility - Fully compressible: Thrombus - None: Flow - Phasic: Augmentation -Normal: Reflux - None. 2. Femoral Vein: 2.1. Compressibility - Fully compressible: Thrombus - None: Flow - Phasic: Augmentation -Normal: Reflux - None. 3. Popliteal Vein: 3.1. Compressibility - Fully compressible: Thrombus - None : Flow - Phasic: Augmentation -Normal: Reflux - None. 4. Posterior Tibial Vein: 4.1. Compressibility - Fully compressible: Thrombus - None: Flow - Phasic: Augmentation -Normal: Reflux - None. 5. Peroneal Vein: 5.1. Compressibility - Fully compressible: Thrombus - None: Flow - Phasic: Augmentation -Normal: Reflux - None. 6. Great Saphenous Vein: 6.1. Compressibility - Fully compressible: Thrombus - None: Flow - Phasic: Augmentation - Normal: Reflux - None. OTHER FINDINGS: Right: None significant. Left: None significant. IMPRESSION: Right: No evidence of deep or superficial vein thrombosis of the right lower extremity. Normal valve function noted of the right side. Left: No evidence of deep or superficial vein thrombosis of the left lower extremity. Normal valve function noted of the left side.
[2018-01-25 12:14] LABS: ALB/GLOB RATIO 1.1 (1.0-2.1); ALT/SGPT 34 U/L (9-52); AST/SGOT 21 U/L (14-36); BLOOD UREA NITROGEN 14 mg/dL (7-17); CALCIUM 8.6 mg/dl (8.6-10.4); GFR NON-AFRICAN AMERICAN > 60
[2018-01-25] MEDS: Moxifloxacin IV 400mg/250ml NS 400 MG/250 ML BAG IVPB SCH (16:05)
--- NOTE | 2018-01-25 19:09 | CARD ---
APPROVED REPORT Date of service: 01/25/2018 EXAM: Two-dimensional and M-mode echocardiogram with Doppler and color Doppler. Other Information Quality : GoodRhythm : Atrial Flutter INDICATION Dyspnea Chest Pain Syncope RISK FACTORS Hypertension 2D DIMENSIONS IVSd1.0 (0.7-1.1cm)LVDd5.4 (3.9-5.9cm) PWd1.0 (0.7-1.1cm)LA [id number] (18-58mL) LVDs4.6 (2.5-4.0cm)FS (%) 14.5 % LVEF (%)30.4 (>50%)LVEF (Muñoz's)29.53 % IVC0.00 cm M-Mode DIMENSIONS Left Atrium (MM)3.87 (2.5-4.0cm)IVSd1.22 (0.7-1.1cm) Aortic Root2.35 (2.2-3.7cm)LVDd7.34 (4.0-5.6cm) Aortic Cusp Exc.1.48 (1.5-2.0cm)PWd1.22 (0.7-1.1cm) FS (%) 14 %LVDs6.34 (2.0-3.8cm) LVEF (%)28 (>50%) Mitral Valve MV E Gibgshyx64.0cm/sMV A Rwimgezp857.8cm/sE/A ratio0.6 OTQL229.51 cm/s TDI Lateral E' Peak V8.61cm/sMedial E' Peak V4.35cm/sE/Lateral E'9.5 E/Medial E'18.9 Tricuspid Valve TR Peak [id number]/sTR Peak [id number] LEFT VENTRICLE The Left Ventricle is mildly dilated. There is normal left ventricular wall thickness. The systolic function is moderately to severely impaired. Regional wall motion abnormalities noted. Transmitral Doppler flow pattern is abnormal. RIGHT VENTRICLE The right ventricle is normal size. ATRIA The left atrium is borderline dilated. AORTIC VALVE The aortic valve is normal in structure. MITRAL VALVE Mitral regurgitation is mild. TRICUSPID VALVE There is mild to moderate tricuspid regurgitation. <Conclusion> Moderate- severe LV systolic dysfunction. Dilated LV. Borderline dilated LA. Mild MR. Mild to moderate TR.
--- NOTE | 2018-01-25 22:44 | CP.PCM.CON ---
History of Present Illness - History of Present Illness History of Present Illness: dictated Past Patient History - Past Medical History & Family History Past Medical History?: Yes - Past Social History Smoking Status: Never Smoked - CARDIAC Hx Hypertension: Yes - PULMONARY Hx Asthma: Yes - NEUROLOGICAL Hx Neurological Disorder: No - HEENT Hx HEENT Problems: No - RENAL Hx Chronic Kidney Disease: No - ENDOCRINE/METABOLIC Hx Endocrine Disorders: No - HEMATOLOGICAL/ONCOLOGICAL Hx Blood Disorders: No - INTEGUMENTARY Hx Dermatological Problems: No - MUSCULOSKELETAL/RHEUMATOLOGICAL Hx Musculoskeletal Disorders: No Hx Falls: No - GASTROINTESTINAL Hx Gastrointestinal Disorders: No - GENITOURINARY/GYNECOLOGICAL Hx Genitourinary Disorders: No - PSYCHIATRIC Hx Substance Use: No - SURGICAL HISTORY Hx Surgeries: Yes Hx Cardiac Catheterization: Yes Hx Section: Yes (X2) Other/Comment: OVARIAN CYST REMOVAL - ANESTHESIA Hx Anesthesia: Yes Hx Anesthesia Reactions: No Hx Malignant Hyperthermia: No Has any member of the family had a problem w/ anesthesia?: No Meds Allergies/Adverse Reactions: Allergies Allergy/AdvReac Type Severity Reaction Status Date / Time No Known Allergies Allergy Verified 01/24/18 08:33 - Medications Medications: Current Medications Acetaminophen (Tylenol 325mg Tab) 650 mg PO Q6 PRN PRN Reason: Pain, moderate (4-7) Albuterol (Ventolin Hfa 90 Mcg/Actuation (8 G)) 1 puff INH RQ6 PRN PRN Reason: Shortness of Breath Enoxaparin Sodium (Lovenox) 80 mg SC Q12H JERONIMO Last Admin: 01/25/18 18:54 Dose: 80 mg Moxifloxacin HCl (Avelox Iv 400mg/250ml Ns) 400 mg in 250 mls @ 167 mls/hr IVPB Q24H JERONIMO; Protocol Last Admin: 01/25/18 16:05 Dose: 167 mls/hr Vancomycin HCl 1,000 mg/ (Sodium Chloride) 250 mls @ 166.6 mls/hr IVPB Q12H JERONIMO; Protocol Last Admin: 01/25/18 18:55 Dose: 166.6 mls/hr Piperacillin Sod/Tazobactam (Sod 3.375 gm/ Sodium Chloride) 100 mls @ 200 mls/hr IVPB Q6H JERONIMO; Protocol Last Admin: 01/25/18 20:42 Dose: 200 mls/hr Ipratropium [place] (Atrovent) 0.5 mg IH RQ6 PRN PRN Reason: Shortness of Breath Last Admin: 01/24/18 22:06 Dose: 0.5 mg Lactobacillus Acidophilus (Bacid Acidophilus) 1 cap PO BID JERONIMO Last Admin: 01/25/18 18:54 Dose: 1 cap Results - Vital Signs Recent Vital Signs: Last Vital Signs Temp 97.8 F 01/25/18 15:00 Pulse 101 H 01/25/18 16:00 Resp 18 01/25/18 15:00 BP 118/71 01/25/18 15:00 Pulse Ox 100 01/25/18 15:00 - Labs Result Diagrams: 01/25/18 11:12 01/25/18 11:12 Labs: Laboratory Results - last 24 hr 01/25/18 01/25/18 11:12 11:12 WBC 6.1 RBC 4.09 Hgb 10.0 L D Hct 31.7 L MCV 77.6 L MCH 24.4 L MCHC 31.5 L RDW 16.8 H Plt Count 232 MPV 9.5 Neut % (Auto) 71.0 Lymph % (Auto) 18.4 L [place] % (Auto) 5.3 Eos % (Auto) 5.1 H Baso % (Auto) 0.2 Neut # (Auto) 4.3 Lymph # (Auto) 1.1 [place] # (Auto) 0.3 Eos # (Auto) 0.3 Baso # (Auto) 0.0 Sodium 140 Potassium 3.7 Chloride 106 Carbon Dioxide 27 Anion Gap 11 BUN 14 Creatinine 0.7 Est GFR ( Amer) > 60 Est GFR (Non-Af Amer) > 60 Random Glucose 134 H Calcium 8.6 Phosphorus 3.3 Magnesium 2.0 Total Bilirubin 0.3 AST 21 ALT 34 Alkaline Phosphatase 45 Total Protein 5.6 L Albumin 3.0 L D Globulin 2.6 Albumin/Globulin Ratio 1.1
[2018-01-26] MEDS: Piperacillin/Tazobact 3.375 GM in Sodium Chloride 100 ML IVPB SCH ×4 (02:42→21:59)
--- NOTE | 2018-01-26 03:31 | CON ---
DATE: 01/25/2018 HISTORY OF PRESENT ILLNESS: The patient is 62-year-old, she suffers from asthma and she gives a history of two MIs, she says recently she had a cardiac cath done by Dr. Pereira at [facility]. She comes in with chest pain and shortness of breath which started while she was home. She had similar presentation before and a right now she is on sedation, she also had a cardiac cath with Dr. Pereira and she was discharged a week ago, comes in with shortness of breath and at this time has been found to have multifocal pneumonia, I am asked to evaluate her. She was having chest pain. She used her inhaler and shortly after that started feeling chest pain and she does not remember what happened, EMS was brought in and she was in atrial flutter, was brought to the ER, had a Cardizem drip and right now she feels slightly better but she is on oxygen. She has a history of asthma, two MIs, hypertension. She is on multiple antibiotics at this time and I am asked to evaluate her. PAST MEDICAL HISTORY: Significant for asthma, [place]. No history of psych problems. PAST SURGICAL HISTORY: History of cardiac cath, history of . Ovarian cyst removal. ALLERGIES: NOT ALLERGIC TO ANY MEDICINES. FAMILY HISTORY: Noncontributory. SOCIAL HISTORY: She denies any alcohol abuse. She does drink wine occasionally with dinner. Denies any drug abuse. Works as a homemaker. Negative for smoking. MEDICATIONS: She was not taking any medication I am not sure, but right now she is on Tylenol, she is on albuterol 1 puff, she is on Lovenox, she is on Atrovent, acidophilus, she is on moxifloxacin, Zosyn and vancomycin 1 gm every 12 hours Zosyn every 6 hours and on Avelox. PHYSICAL EXAMINATION: HEENT: I find she is atraumatic, normocephalic. Pupils are reacting to light. Tongue is moist. NECK: Supple. LUNGS: Has decreased breath sounds. No wheezing. No rhonchi, no rales heard. HEART: S1, S2 are regular at this time. ABDOMEN: Soft, nontender. No guarding, no rigidity present. EXTREMITIES: Have no edema, clubbing or cyanosis. LABORATORY DATA: Labs are noted. Labs show white count is 6.1 today, hemoglobin 10, hematocrit 31.7, platelet count is 232 and as she did come with atrial fib flutter D-dimers were 610 when she came here, INR was 1. ABG showed a lactate level of 1.8. Sodium 140, potassium 3.4, chloride 106, CO2 is 27, BUN is 14, creatinine is 0.7 and glucose is 134. UA is negative. She had a chest large central or segmental pulmonary embolism, ground-glass patchy bilateral hazy infiltrates suspicious for multifocal pneumonia. Recommend followup to ensure complete resolution upon completion of treatment, 5-mm right lower lobe ground-glass node seen, mediastinal and hilar adenopathy measuring up to approximately 1.5 in short axis subcarina. ASSESSMENT AND PLAN: So, she has mediastinal lymphadenopathy also and she has bilateral multifocal pneumonia at this time. So at this time, I will continue the antibiotics, will need pneumonia workup and may also need a pulmonary evaluation as this is extensive we need to find out from the other hospital what was done for her. We will continue present antibiotics at this time and we will follow. Grady Moran MD
[2018-01-26] MEDS: Enoxaparin 80 mg Syringe SC SCH ×2 (06:21→18:14)
[2018-01-26] MEDS: Ipratropium 0.02% Inhal Soln (0.5 mg/2.5 ml) UD IH PRN ×2 (06:24→23:55)
[2018-01-26 07:22] LABS: BASO % 0.4 % (0.0-2.0); EOS # 0.4 K/uL (0.0-0.7); EOS % 9.1 % (0.0-4.0); HEMOGLOBIN 10.1 g/dL (11.0-16.0); LYMPH % 21.8 % (20.0-40.0); MEAN CELL VOLUME 77.2 fL (81.0-99.0); MEAN CORPUSCULAR HGB CONC 32.4 g/dL (33.0-37.0); MEAN PLATELET VOLUME 9.7 fL (7.2-11.7); MONO # 0.3 K/uL (0.0-0.8); MONO % 7.5 % (0.0-10.0); NEUT # 2.8 K/uL (1.8-7.0); NEUT % 61.2 % (50.0-75.0); RBC 4.05 Mil/uL (3.80-5.20); RED CELL DISTRIBUTION WIDTH 16.4 % (11.5-14.5); WHITE BLOOD COUNT 4.6 K/uL (4.8-10.8)
[2018-01-26 07:40] LABS: IRON 30 ug/dL (37-170)
[2018-01-26 07:49] LABS: ALB/GLOB RATIO 1.2 (1.0-2.1); ALBUMIN 3.3 g/dL (3.5-5.0); ALT/SGPT 30 U/L (9-52); AST/SGOT 20 U/L (14-36); BLOOD UREA NITROGEN 19 mg/dL (7-17); CALCIUM 8.9 mg/dl (8.6-10.4); GFR NON-AFRICAN AMERICAN > 60; HDL CHOLESTEROL 47 mg/dL (30-70)
[2018-01-26 07:54] LABS: % IRON SATURATION 11 (20-55); TOTAL IRON BINDING CAPACITY 269 ug/dL (250-450)
[2018-01-26 07:57] LABS: LDL CHOLESTEROL 84 mg/dL (0-129)
[2018-01-26] MEDS: Lactobacillus Acidophilus 500 MU Cap PO SCH ×2 (09:38→17:34)
--- NOTE | 2018-01-26 10:18 | CP.PCM.PN ---
<Marilyn,Matthew - Last Filed: 01/26/18 17:28> Subjective - Date & Time of Evaluation Date of Evaluation: 01/26/18 Time of Evaluation: 09:10 - Subjective Subjective: Medicine Progress Note for Hospitalist Service Pt seen and examined at bedside this am. Denies any acute complaints, observed ambulating to and from bathroom without concerns. No acute events reported overnight. Pt currently on antibiotics for HCAP pneumonia. States chest pain this am is pinpoint, substernal, no radiation, improved compared to yesterday. Denies headache, dizziness, fever, chills, shortness of breath, n/v/d/c, abd pain, urinary complaints, or other symptoms. Objective - Vital Signs/Intake and Output Vital Signs (last 24 hours): Temp Pulse Resp BP Pulse Ox 97.8 F 73 20 129/78 100 01/26/18 07:00 01/26/18 07:00 01/26/18 07:00 01/26/18 07:00 01/26/18 07:00 - Medications Medications: Current Medications Acetaminophen (Tylenol 325mg Tab) 650 mg PO Q6 PRN PRN Reason: Pain, moderate (4-7) Albuterol (Ventolin Hfa 90 Mcg/Actuation (8 G)) 1 puff INH RQ6 PRN PRN Reason: Shortness of Breath Enoxaparin Sodium (Lovenox) 80 mg SC Q12H JERONIMO Last Admin: 01/26/18 06:21 Dose: 80 mg Moxifloxacin HCl (Avelox Iv 400mg/250ml Ns) 400 mg in 250 mls @ 167 mls/hr IVPB Q24H JERONIMO; Protocol Last Admin: 01/25/18 16:05 Dose: 167 mls/hr Vancomycin HCl 1,000 mg/ (Sodium Chloride) 250 mls @ 166.6 mls/hr IVPB Q12H JERONIMO; Protocol Last Admin: 01/26/18 04:15 Dose: 166.6 mls/hr Piperacillin Sod/Tazobactam (Sod 3.375 gm/ Sodium Chloride) 100 mls @ 200 mls/hr IVPB Q6H JERONIMO; Protocol Last Admin: 01/26/18 08:40 Dose: 200 mls/hr Ipratropium [place] (Atrovent) 0.5 mg IH RQ6 PRN PRN Reason: Shortness of Breath Last Admin: 01/26/18 06:24 Dose: 0.5 mg Lactobacillus Acidophilus (Bacid Acidophilus) 1 cap PO BID JEORNIMO Last Admin: 01/26/18 09:38 Dose: 1 cap - Labs Labs: 01/26/18 07:12 01/26/18 07:12 PT 11.4 SECONDS (9.7-12.2) 01/24/18 08:42 INR 1.0 01/24/18 08:42 APTT 29 SECONDS (21-34) 01/24/18 08:42 - Constitutional Appears: Non-toxic, No Acute Distress - Head Exam Head Exam: ATRAUMATIC, NORMOCEPHALIC - Eye Exam Eye Exam: EOMI, Normal appearance, PERRL - ENT Exam ENT Exam: Mucous Membranes Moist - Neck Exam Neck Exam: Full ROM, Normal Inspection - Respiratory Exam Respiratory Exam: NORMAL BREATHING PATTERN Additional comments: Trace crackles heard in lung bases b/l - Cardiovascular Exam Cardiovascular Exam: REGULAR RHYTHM, +S1, +S2 - GI/Abdominal Exam GI & Abdominal Exam: Soft, Normal Bowel Sounds. absent: Distended, Firm, G uarding, Rigid, Tenderness, Organomegaly, Rebound - Extremities Exam Extremities Exam: Full ROM, Normal Capillary Refill, Normal Inspection Additional comments: Trace 1+ pitting edema in lower legs b/l - Back Exam Back Exam: Full ROM, NORMAL INSPECTION. absent: tenderness - Neurological Exam Neurological Exam: Alert, Awake, CN II-XII Intact, Normal Gait, Oriented x3 - Psychiatric Exam Psychiatric exam: Normal Affect, Normal Mood - Skin Skin Exam: Dry, Intact, Normal Color, Warm Assessment and Plan - Assessment and Plan (Free Text) Assessment: 62 year old female with past medical history of asthma, [place] x2, who is admitted for chest pain, s/p episode of a-flutter s/p cardizem tx as per EMS, and bilateral pneumonia. Plan: Chest Pain Troponin x3 stable EKG at ED: shows sinus tachycardia, Left bundle branch block; repeat EKG this am demonstrates no acute changes LBBB chronic after review of [facility] records Cardiology Consulted - Dr Hollingsworth, recs appreciated Hgb A1C 6.3, patient with impaired glucose tolerance Echo 01/25: moderate-severe LV systolic dysfunction, EF 30%, dilated L ventricle, borderline dilated L atrium, mild mitral regurgitation, mild to moderate tricuspid regurgitation -Echo done at [facility] shows similar picture Pt started on Coreg bid, Lisinopril 10 mg daily, ASA, and Statin therapy; continue to monitor blood pressures A-flutter Found by EMS, cardizem provided by EMS CHADS2-VASC score of 2 TSH, T4 wnl UDS neg F/u Dr Hollingsworth recs - c/w lovenox 80mg sc Q12h Repeat EKGs inpatient do not demonstrate a-flutter at this time Possible LOC R/o trauma to head CT head w/o contrast STAT - negative Pt AAOx3, no acute distress, doing well Shortness of breath, 2/2 B/L Pneumonia, probable Health care associated pneumonia (HCAP) with increased risk for MDR Chest xray - rt basilar opacity, r/o developing pneumonia, no pneumothorax CTA chest - no embolus, ground glass patchy bilateral infiltrates, suspect multifocal pneumonia. mediastinal and hilar adenopathy 1.5 cm Zosyn x1 dose given in ER C/w Zosyn 3.375gm IVPB Q6hrs C/w Avelox 400mg IVPB Q24hrs C/w Vanco 1gm IVPB Q12hrs ID consult - Dr Moran, recs appreciated Rapid flu test neg, S. pneumo and Legionella Ag neg Pt not observed to be short of breath at bedside, observed ambulating to and from bathroom without concerns, does not need nasal cannula at this time Pt leukopenic on labs this am at 4.6, continue to monitor R renal lesion Simple cyst 2.5 cm on CTA B/L renal U/S: no obstructive uropathy b/l although simple cyst identified in b/l upper pole kidneys, exophytic simple cyst seen related to L kidney corresponding to CT finding also identified 01/24/18; limited corticomedullary differentiation may reflect intrinsic renal disease BUN/Cr 19/0.8, wnl, continue to trend Solitary nodule lung 5mm lower lobe ground glass nodule patient is nonsmoker Can follow as outpatient, no acute intervention needed at this time Elevated D -Dimer r/o DVT, PE D-dimer 610 CTA shows no evidence of PE Venous doppler LE B/L neg Abnormal RBC indices - likely 2/2 iron deficiency anemia hemoglobin on admission: 12.0 MCV 78, MCH: 24.4, MCHC 31.3, RDW: 16.9 Total iron 30, TIBC 269, % saturation 11, Ferritin 100 Stool guaic negative As per patient, no previous colonoscopy - adviced patient to get colonoscopy outpatient after d/c Will not start inpatient PO iron tx at this time until pt finishes treatment for pneumonia PPX Lactobacillus BID after two hours of antibiotics tylenol 650mg PO Q6hrs PRN for fever DVT risk score of 3 - lovenox 80mg SC BID Heart healthy diet Patient not to be given influenza and pneumonia vaccinations Dispo: Upon review from records obtained from patient's prior admission on 01/06/18 at [facility], pt was treated for severe sepsis 2/2 pneumonia and for NSTEMI. Pt was on Rocephin and Zithromax inpatient. Had cardiac cath which was negative for acute disease. Pt's prior EKGs show LBBB and was thus diagnosed with cardiomyopathy. Electrophysiology was consulted for the patient and recommended defibrillator if pt's symptoms of chest pain and shortness of breath did not improve. It was found that pt was started on ASA and Plavix inpatient, however on this current admission at [facility], patient only stated that she was on Asthma and HTN medications outpatient. Further information can be found in patient's chart at nurses station. This information was conveyed to and discussed with Dr. Bobo, attending physician. Continue tx for Pneumonia and chest pain. Pt seen, examined with, and plan d/w Dr. Bobo, attending physician. Matthew Sanders DO PGY-1, Emergency Planning And Response Manager Pager #[phone] <John Bobo - Last Filed: 01/27/18 19:46> Objective - Vital Signs/Intake and Output Vital Signs (last 24 hours): Temp Pulse Resp BP Pulse Ox 98 F 62 20 136/81 97 01/27/18 15:30 01/27/18 18:00 01/27/18 15:30 01/27/18 15:30 01/27/18 15:30 - Medications Medications: Current Medications Acetaminophen (Tylenol 325mg Tab) 650 mg PO Q6 PRN PRN Reason: Pain, moderate (4-7) Albuterol (Ventolin Hfa 90 Mcg/Actuation (8 G)) 1 puff INH RQ6 PRN PRN Reason: Shortness of Breath Aspirin (Ecotrin) 81 mg PO DAILY [facility] Last Admin: 01/27/18 09:53 Dose: 81 mg Carvedilol (Coreg) 3.125 mg PO BID [facility] Last Admin: 01/27/18 17:11 Dose: 3.125 mg Piperacillin Sod/Tazobactam (Sod 3.375 gm/ Sodium Chloride) 100 mls @ 200 mls/hr IVPB Q6H JERONIMO; Protocol Last Admin: 01/27/18 13:56 Dose: 200 mls/hr Vancomycin HCl 1,250 mg/ (Sodium Chloride) 250 mls @ 166.6 mls/hr IVPB Q12H JERONIMO; Protocol Last Admin: 01/27/18 09:54 Dose: 166.6 mls/hr Ipratropium [place] (Atrovent) 0.5 mg IH RQ6 PRN PRN Reason: Shortness of Breath Last Admin: 01/27/18 17:07 Dose: 0.5 mg Lactobacillus Acidophilus (Bacid Acidophilus) 1 cap PO BID [facility] Last Admin: 01/27/18 17:11 Dose: 1 cap Lisinopril (Zestril) 10 mg PO DAILY [facility] Last Admin: 01/27/18 09:09 Dose: 10 mg Rosuvastatin Calcium (Crestor) 5 mg PO HS [facility] Last Admin: 01/26/18 21:00 Dose: 5 mg - Labs Labs: 01/27/18 08:30 01/27/18 08:30 PT 11.4 SECONDS (9.7-12.2) 01/24/18 08:42 INR 1.0 01/24/18 08:42 APTT 29 SECONDS (21-34) 01/24/18 08:42 Attending/Attestation - Attestation I have personally seen and examined this patient.: Yes I have fully participated in the care of the patient.: Yes I have reviewed all pertinent clinical information, including history, physical exam and plan: Yes Notes (Text): 01/27/18 19:46 This is a late entry. Care of this patient was gone over in detail with resident Dr. Sanders. John Bobo D.O.
[2018-01-26] MEDS: Moxifloxacin IV 400mg/250ml NS 400 MG/250 ML BAG IVPB SCH (17:32)
--- NOTE | 2018-01-26 17:49 | CARD ---
APPROVED REPORT Date of service: 01/25/2018 EKG Measurement Heart [id number] <Conclusion> Normal sinus rhythm Left bundle branch block Abnormal ECG
--- NOTE | 2018-01-26 19:41 | CP.PCM.PN ---
Subjective - Date & Time of Evaluation Date of Evaluation: 01/26/18 Time of Evaluation: 15:15 - Subjective Subjective: dictated Objective - Vital Signs/Intake and Output Vital Signs (last 24 hours): Temp Pulse Resp BP Pulse Ox 98.5 F 78 20 142/83 100 01/26/18 15:00 01/26/18 16:02 01/26/18 15:00 01/26/18 15:00 01/26/18 15:00 - Medications Medications: Current Medications Acetaminophen (Tylenol 325mg Tab) 650 mg PO Q6 PRN PRN Reason: Pain, moderate (4-7) Albuterol (Ventolin Hfa 90 Mcg/Actuation (8 G)) 1 puff INH RQ6 PRN PRN Reason: Shortness of Breath Aspirin (Ecotrin) 81 mg PO DAILY [facility] BEDS AT [facility] Last Admin: 01/26/18 11:24 Dose: 81 mg Carvedilol (Coreg) 3.125 mg PO BID [facility]S [facility]CLUDE 234 BEDS AT [facility] Last Admin: 01/26/18 17:34 Dose: 3.125 mg Enoxaparin Sodium (Lovenox) 80 mg SC Q12H [facility]S [facility]CLUDE 234 BEDS AT THE [facility] Last Admin: 01/26/18 18:14 Dose: 80 mg Moxifloxacin HCl (Avelox Iv 400mg/250ml Ns) 400 mg in 250 mls @ 167 mls/hr IVPB Q24H JERONIMO; Protocol Last Admin: 01/26/18 16:32 Dose: 167 mls/hr Vancomycin HCl 1,000 mg/ (Sodium Chloride) 250 mls @ 166.6 mls/hr IVPB Q12H JERONIMO; Protocol Last Admin: 01/26/18 18:14 Dose: 166.6 mls/hr Piperacillin Sod/Tazobactam (Sod 3.375 gm/ Sodium Chloride) 100 mls @ 200 mls/hr IVPB Q6H JERONIMO; Protocol Last Admin: 01/26/18 13:54 Dose: 200 mls/hr Ipratropium [place] (Atrovent) 0.5 mg IH RQ6 PRN PRN Reason: Shortness of Breath Last Admin: 01/26/18 06:24 Dose: 0.5 mg Lactobacillus Acidophilus (Bacid Acidophilus) 1 cap PO BID COUNTS INCLUDE 234 BEDS AT THE [facility] Last Admin: 01/26/18 17:34 Dose: 1 cap Lisinopril (Zestril) 10 mg PO DAILY JERONIMO Last Admin: 01/26/18 11:24 Dose: 10 mg Rosuvastatin Calcium (Crestor) 5 mg PO HS JERONIMO - Labs Labs: 01/26/18 07:12 01/26/18 07:12 PT 11.4 SECONDS (9.7-12.2) 01/24/18 08:42 INR 1.0 01/24/18 08:42 APTT 29 SECONDS (21-34) 01/24/18 08:42
--- NOTE | 2018-01-26 23:04 | PN ---
DATE: 01/26/2018 SUBJECTIVE: The patient remains on oxygen. She states, she is feeling slightly better; has no cough, but her breathing still looks labored in spite of being on oxygen, she does have multifocal pneumonia. OBJECTIVE: GENERAL: She is awake and alert, able to give some history, speaks only [place]. HEENT: Head is atraumatic, normocephalic. NECK: Supple. LUNGS: Clear. Decreased breath sounds bilaterally. HEART: S1, S2 regular. ABDOMEN: Soft, nontender. No guarding. No rigidity present. Labs show white count is 4.6, hemoglobin is 10.1, hematocrit 31.7, platelet count is 230; and her vancomycin trough was 8.7 today. We will increase the dose. Legionella is negative, and influenza is negative. Mycoplasma IgM and IgG negative. Strep pneumonia antigen is negative. It seems she may she may have viral pneumonia multifocal with respiratory distress. However, I will continue Zosyn, amoxicillin, I will make it oral and vancomycin. I will increase the dose to 1250 every 12 hours for now as vancomycin trough is less. We will follow x-rays on Monday and then see if he is improving. Grady Moran MD
[2018-01-27] MEDS: Piperacillin/Tazobact 3.375 GM in Sodium Chloride 100 ML IVPB SCH ×4 (02:40→20:58)
[2018-01-27] MEDS: Enoxaparin 80 mg Syringe SC SCH (06:07)
[2018-01-27 08:36] LABS: BASO % 0.3 % (0.0-2.0); EOS # 0.5 K/uL (0.0-0.7); EOS % 10.8 % (0.0-4.0); HEMOGLOBIN 11.1 g/dL (11.0-16.0); LYMPH # 1.1 K/uL (1.0-4.3); LYMPH % 25.2 % (20.0-40.0); MEAN CELL VOLUME 76.9 fL (81.0-99.0); MEAN CORPUSCULAR HEMOGLOBIN 24.3 pg (27.0-31.0); MEAN CORPUSCULAR HGB CONC 31.5 g/dL (33.0-37.0); MEAN PLATELET VOLUME 9.5 fL (7.2-11.7); MONO # 0.3 K/uL (0.0-0.8); MONO % 6.5 % (0.0-10.0); NEUT # 2.6 K/uL (1.8-7.0); NEUT % 57.2 % (50.0-75.0); RBC 4.57 Mil/uL (3.80-5.20); RED CELL DISTRIBUTION WIDTH 16.7 % (11.5-14.5); WHITE BLOOD COUNT 4.6 K/uL (4.8-10.8)
[2018-01-27 08:52] LABS: ALB/GLOB RATIO 1.2 (1.0-2.1); ALBUMIN 3.8 g/dL (3.5-5.0); ALT/SGPT 35 U/L (9-52); AST/SGOT 32 U/L (14-36); BLOOD UREA NITROGEN 17 mg/dL (7-17); CALCIUM 9.5 mg/dl (8.6-10.4); GFR NON-AFRICAN AMERICAN > 60
[2018-01-27] MEDS: Lactobacillus Acidophilus 500 MU Cap PO SCH ×2 (09:09→17:11)
[2018-01-27 10:00] LABS: FOLATE 8.3 ng/mL
--- NOTE | 2018-01-27 10:42 | CP.PCM.PN ---
<Gama Pat - Last Filed: 01/27/18 10:35> Subjective - Date & Time of Evaluation Date of Evaluation: 01/27/18 Time of Evaluation: 05:30 - Subjective Subjective: PGY-[address] John Bobo Patient is seen and examined at bedside. Patient reports no acute events. Patient states having mild itchiness in her chest from the leads connected to her telemetry machine. Patient states improving shortness of breath and chest pain. Patient says oxygen helps her not feel out of breath. Patient denies fever, chills, nausea, vomiting, diarrhea or constipation or dysuria. Patient is tolerating diet and has not been able to walk as much due to her IV connected to her arm. Objective - Vital Signs/Intake and Output Vital Signs (last 24 hours): Temp Pulse Resp BP Pulse Ox 98.0 F 97 H 20 128/75 99 01/27/18 07:00 01/27/18 08:24 01/27/18 07:00 01/27/18 07:00 01/27/18 07:00 Intake and Output: 01/27/18 01/27/18 06:59 18:59 Intake Total 1500 Balance 1500 - Medications Medications: Current Medications Acetaminophen (Tylenol 325mg Tab) 650 mg PO Q6 PRN PRN Reason: Pain, moderate (4-7) Albuterol (Ventolin Hfa 90 Mcg/Actuation (8 G)) 1 puff INH RQ6 PRN PRN Reason: Shortness of Breath Aspirin (Ecotrin) 81 mg PO DAILY [facility] Last Admin: 01/27/18 09:53 Dose: 81 mg Carvedilol (Coreg) 3.125 mg PO BID [facility] Last Admin: 01/27/18 09:09 Dose: 3.125 mg Enoxaparin Sodium (Lovenox) 80 mg SC Q12H [facility] Last Admin: 01/27/18 06:07 Dose: 80 mg Piperacillin Sod/Tazobactam (Sod 3.375 gm/ Sodium Chloride) 100 mls @ 200 mls/hr IVPB Q6H [facility]; Protocol Last Admin: 01/27/18 09:09 Dose: 200 mls/hr Vancomycin HCl 1,250 mg/ (Sodium Chloride) 250 mls @ 166.6 mls/hr IVPB Q12H [facility]; Protocol Last Admin: 01/27/18 09:54 Dose: 166.6 mls/hr Ipratropium Verbena (Atrovent) 0.5 mg IH RQ6 PRN PRN Reason: Shortness of Breath Last Admin: 01/26/18 23:55 Dose: 0.5 mg Lactobacillus Acidophilus (Bacid Acidophilus) 1 cap PO BID [facility] Last Admin: 01/27/18 09:09 Dose: 1 cap Lisinopril (Zestril) 10 mg PO DAILY [facility] Last Admin: 01/27/18 09:09 Dose: 10 mg Rosuvastatin Calcium (Crestor) 5 mg PO HS [facility] Last Admin: 01/26/18 21:00 Dose: 5 mg - Labs Labs: 01/27/18 08:30 01/27/18 08:30 PT 11.4 SECONDS (9.7-12.2) 01/24/18 08:42 INR 1.0 01/24/18 08:42 APTT 29 SECONDS (21-34) 01/24/18 08:42 - Constitutional Appears: Well, Non-toxic, No Acute Distress - Head Exam Head Exam: ATRAUMATIC, NORMAL INSPECTION, NORMOCEPHALIC - Eye Exam Eye Exam: EOMI, Normal appearance - ENT Exam ENT Exam: Mucous Membranes Moist, Normal Exam - Neck Exam Neck Exam: Full ROM, Normal Inspection - Respiratory Exam Respiratory Exam: Clear to Ausculation Bilateral, NORMAL BREATHING PATTERN. absent: Accessory Muscle Use, Decreased Breath Sounds, Rales, Rhonchi, Wheezes - Cardiovascular Exam Cardiovascular Exam: Tachycardia, REGULAR RHYTHM, +S1, +S2 - GI/Abdominal Exam GI & Abdominal Exam: Soft, Normal Bowel Sounds. absent: Distended, Guarding, Rigid, Tenderness - Extremities Exam Extremities Exam: Full ROM, Normal Capillary Refill, Normal Inspection. absent: Calf Tenderness, Tenderness - Back Exam Back Exam: Full ROM, NORMAL INSPECTION - Neurological Exam Neurological Exam: Alert, Awake, Oriented x3 - Psychiatric Exam Psychiatric exam: Flat Affect, Normal Mood - Skin Skin Exam: Dry, Intact, Normal Color, Warm Assessment and Plan - Assessment and Plan (Free Text) Plan: Chest Pain Troponin x3 stable EKG at ED: shows sinus tachycardia, Left bundle branch block; repeat EKG this am demonstrates no acute changes LBBB chronic after review of [facility] records Cardiology Consulted - Dr Hollingsworth, recs appreciated Hgb A1C 6.3, patient with impaired glucose tolerance Echo 01/25: moderate-severe LV systolic dysfunction, EF 30%, dilated L ventricle, borderline dilated L atrium, mild mitral regurgitation, mild to moderate tricuspid regurgitation -Echo done at [facility] shows similar picture Pt started on Coreg bid, Lisinopril 10 mg daily, ASA, and Statin therapy; continue to monitor blood pressures f/u with [employer] apprenticeship training representative on Monday for life vest - follow up with cardio for orders A-flutter Found by EMS, cardizem provided by EMS CHADS2-VASC score of 2 TSH, T4 wnl UDS neg F/u Dr Hollingsworth recs - c/w lovenox 80mg sc Q12h Repeat EKGs inpatient do not demonstrate a-flutter at this time Possible LOC R/o trauma to head CT head w/o contrast STAT - negative Pt AAOx3, no acute distress, doing well Shortness of breath, 2/2 B/L Pneumonia, probable Health care associated pneumonia (HCAP) with increased risk for MDR Chest xray - rt basilar opacity, r/o developing pneumonia, no pneumothorax CTA chest - no embolus, ground glass patchy bilateral infiltrates, suspect multifocal pneumonia. mediastinal and hilar adenopathy 1.5 cm Zosyn x1 dose given in ER C/w Zosyn 3.375gm IVPB Q6hrs C/w Avelox 400mg IVPB Q24hrs C/w Vanco 1gm IVPB Q12hrs ID consult - Dr Moran, recs appreciated Rapid flu test neg, S. pneumo and Legionella Ag neg Pt not observed to be short of breath at bedside, observed ambulating to and from bathroom without concerns, does not need nasal cannula at this time Pt leukopenic on labs this am at 4.6, continue to monitor R renal lesion Simple cyst 2.5 cm on CTA B/L renal U/S: no obstructive uropathy b/l although simple cyst identified in b/l upper pole kidneys, exophytic simple cyst seen related to L kidney corresponding to CT finding also identified 01/24/18; limited corticomedullary differentiation may reflect intrinsic renal disease BUN/Cr 19/0.8, wnl, continue to trend Solitary nodule lung 5mm lower lobe ground glass nodule patient is nonsmoker Can follow as outpatient, no acute intervention needed at this time Elevated D -Dimer r/o DVT, PE D-dimer 610 CTA shows no evidence of PE Venous doppler LE B/L neg Abnormal RBC indices - likely 2/2 iron deficiency anemia hemoglobin on admission: 12.0 MCV 78, MCH: 24.4, MCHC 31.3, RDW: 16.9 Total iron 30, TIBC 269, % saturation 11, Ferritin 100 Stool guaic negative As per patient, no previous colonoscopy - adviced patient to get colonoscopy outpatient after d/c Will not start inpatient PO iron tx at this time until pt finishes treatment for pneumonia PPX Lactobacillus BID after two hours of antibiotics tylenol 650mg PO Q6hrs PRN for fever DVT risk score of 3 - lovenox 80mg SC BID Heart healthy diet Patient not to be given influenza and pneumonia vaccinations Plan to be discussed with Dr Christiano Pat, PGY-1 <John Bobo - Last Filed: 01/27/18 19:46> Objective - Vital Signs/Intake and Output Vital Signs (last 24 hours): Temp Pulse Resp BP Pulse Ox 98 F 62 20 136/81 97 01/27/18 15:30 01/27/18 18:00 01/27/18 15:30 01/27/18 15:30 01/27/18 15:30 - Medications Medications: Current Medications Acetaminophen (Tylenol 325mg Tab) 650 mg PO Q6 PRN PRN Reason: Pain, moderate (4-7) Albuterol (Ventolin Hfa 90 Mcg/Actuation (8 G)) 1 puff INH RQ6 PRN PRN Reason: Shortness of Breath Aspirin (Ecotrin) 81 mg PO DAILY [facility] Last Admin: 01/27/18 09:53 Dose: 81 mg Carvedilol (Coreg) 3.125 mg PO BID [facility] Last Admin: 01/27/18 17:11 Dose: 3.125 mg Piperacillin Sod/Tazobactam (Sod 3.375 gm/ Sodium Chloride) 100 mls @ 200 mls/hr IVPB Q6H [facility]; Protocol Last Admin: 01/27/18 13:56 Dose: 200 mls/hr Vancomycin HCl 1,250 mg/ (Sodium Chloride) 250 mls @ 166.6 mls/hr IVPB Q12H [facility]; Protocol Last Admin: 01/27/18 09:54 Dose: 166.6 mls/hr Ipratropium Verbena (Atrovent) 0.5 mg IH RQ6 PRN PRN Reason: Shortness of Breath Last Admin: 01/27/18 17:07 Dose: 0.5 mg Lactobacillus Acidophilus (Bacid Acidophilus) 1 cap PO BID [facility] Last Admin: 01/27/18 17:11 Dose: 1 cap Lisinopril (Zestril) 10 mg PO DAILY [facility] Last Admin: 01/27/18 09:09 Dose: 10 mg Rosuvastatin Calcium (Crestor) 5 mg PO HS [facility] Last Admin: 01/26/18 21:00 Dose: 5 mg - Labs Labs: 01/27/18 08:30 01/27/18 08:30 PT 11.4 SECONDS (9.7-12.2) 01/24/18 08:42 INR 1.0 01/24/18 08:42 APTT 29 SECONDS (21-34) 01/24/18 08:42 Attending/Attestation - Attestation I have personally seen and examined this patient.: Yes I have fully participated in the care of the patient.: Yes I have reviewed all pertinent clinical information, including history, physical exam and plan: Yes Notes (Text): 01/27/18 19:30 Patient was seen and examined at 10:30 AM 01/27/18 with the help of Councilor Obi from [facility] who helped to translate [employer] Upon FULL ROS she currently has no complaints HEENT, Cardio, Resp, GI, Ext, CN II through XII are unremarkable Records from [facility] were reviewed: 1). She had Cardiac Cath performed on 01/16/18 and this showed nonischemic cardiomyopathy, no significant CAD, LV function between 30 and 35% 2). Bilateral Venous Dopplers 01/08/16 were negative 3). EKG 01/17/18 showed LBBB 4). CXR 01/09/18 showed resolving infiltrates and 01/11/18 and 01/14/18 showed no consolidation 5). CT Angio Chest 01/07/18 showed patchy right basilar opacity and NO PE 6). Renal U/S 01/09/18 showed 3.2 cm exophytic left renal cyst and 1.2 cm right upper pole cyst The plan from the team at [employer] was the followin). Medically manage the nonischemic cardiomyopathy for 3 months 2). If no improvement upon repeat Echo/Cardiac MRI in 3 months from January 2018, then she will need SHANK SANDER Defibrillator 3). She was given instructions to follow up with Youth Director Dr. Brandon Mcgraw at [facility] Please note that the patient never had the prescriptions with which she was discharged with from [facility] filled. Upon this admission, she did not reveal this information to us until today when questioned about these medications after review of the records from [facility]. I spoke with [employer] Account Executive Dr. Hollingsworth today: 1). We will discontinue the therapeutic Lovenox 2). Continue medical management of the nonischemic cardiomyopathy: Coreg 3.125 m g PO 2x/day, Lisinopril 10 mg PO 1x/day, ASA 81 mg PO 1x/day (NO PLAVIX), Crestor 5 mg PO 1x/day. Compliance with these medications was stressed to the patient. 3). Await [employer] Life Vest delivery: patient was explained the importance of compliance of wearing this vest and reason why it needed to be worn 4). She will need to schedule appointment with our clinic to help coordinate her care and cardiology follow up with Echo/Cardiac MRI in late March 2018 or early April 2018 to see if there has been any improvement in her nonischemic cardiomyopathy. If NO improvement, then the clinic should contact Dr. Hollingsworth's office and he will help to arrange for SHANK SANDER Defibrillator. As per ID Dr. Moran's recommendations we will repeat Chest X Ray PA/Lateral on morning of Monday01/29/18. For the bilateral pneumonia, continue the Zosyn 3.375 gm IV Q6H and she has increased the Vancomycin to 1,250 mg IV Q12H All of the above was explained in detail in [employer] with the help of Councilor from [facility] and patient expressed understanding. Total Time spent with patient with exam, explaining the above, and answering her questions was 45 minutes. John Bobo D.O.
--- NOTE | 2018-01-27 14:59 | CP.PCM.PN ---
Subjective - Date & Time of Evaluation Date of Evaluation: 01/27/18 Time of Evaluation: 09:00 - Subjective Subjective: no chest pain CT angio- no PE Cardiac cath at [facility] - nL coronaries; moderate to severe LV systolic function EKG- NSR w/ LBBB(old) Objective - Vital Signs/Intake and Output Vital Signs (last 24 hours): Temp Pulse Resp BP Pulse Ox 98.0 F 68 20 128/75 99 01/27/18 07:00 01/27/18 13:31 01/27/18 07:00 01/27/18 07:00 01/27/18 07:00 Intake and Output: 01/27/18 01/27/18 06:59 18:59 Intake Total 1500 Balance 1500 - Medications Medications: Current Medications Acetaminophen (Tylenol 325mg Tab) 650 mg PO Q6 PRN PRN Reason: Pain, moderate (4-7) Albuterol (Ventolin Hfa 90 Mcg/Actuation (8 G)) 1 puff INH RQ6 PRN PRN Reason: Shortness of Breath Aspirin (Ecotrin) 81 mg PO DAILY [facility] Last Admin: 01/27/18 09:53 Dose: 81 mg Carvedilol (Coreg) 3.125 mg PO BID [facility] Last Admin: 01/27/18 09:09 Dose: 3.125 mg Piperacillin Sod/Tazobactam (Sod 3.375 gm/ Sodium Chloride) 100 mls @ 200 mls/hr IVPB Q6H [facility]; Protocol Last Admin: 01/27/18 13:56 Dose: 200 mls/hr Vancomycin HCl 1,250 mg/ (Sodium Chloride) 250 mls @ 166.6 mls/hr IVPB Q12H [facility]; Protocol Last Admin: 01/27/18 09:54 Dose: 166.6 mls/hr Ipratropium [place] (Atrovent) 0.5 mg IH RQ6 PRN PRN Reason: Shortness of Breath Last Admin: 01/26/18 23:55 Dose: 0.5 mg Lactobacillus Acidophilus (Bacid Acidophilus) 1 cap PO BID [facility] Last Admin: 01/27/18 09:09 Dose: 1 cap Lisinopril (Zestril) 10 mg PO DAILY [facility] Last Admin: 01/27/18 09:09 Dose: 10 mg Rosuvastatin Calcium (Crestor) 5 mg PO HS [facility] Last Admin: 10/19/18 21:00 Dose: 5 mg - Labs Labs: 01/27/18 08:30 01/27/18 08:30 PT 11.4 SECONDS (9.7-12.2) 01/24/18 08:42 INR 1.0 01/24/18 08:42 APTT 29 SECONDS (21-34) 01/24/18 08:42 - Constitutional Appears: Non-toxic - Head Exam Head Exam: NORMAL INSPECTION - Eye Exam Eye Exam: absent: Scleral icterus - ENT Exam ENT Exam: Mucous Membranes Moist - Neck Exam Neck Exam: Full ROM - Respiratory Exam Respiratory Exam: NORMAL BREATHING PATTERN - Cardiovascular Exam Cardiovascular Exam: REGULAR RHYTHM - GI/Abdominal Exam GI & Abdominal Exam: Soft - Extremities Exam Extremities Exam: Pedal Edema - Neurological Exam Neurological Exam: Alert, Oriented x3 Assessment and Plan - Assessment and Plan (Free Text) Assessment: Non-ischemic cardiomyopathy HTN Plan: Pt will [employer] life vest Repeat ECHO in 3 months If LV EF < 35%, then we'll proceed to Biventricular ICD(MEAT CURER) Case discussed with Dr John Bobo
--- NOTE | 2018-01-27 15:15 | CP.PCM.PN ---
Subjective - Date & Time of Evaluation Date of Evaluation: 01/26/18 Time of Evaluation: 08:00 - Subjective Subjective: no chest pain no sob +pneumonia Objective - Vital Signs/Intake and Output Vital Signs (last 24 hours): Temp Pulse Resp BP Pulse Ox 98.0 F 68 20 128/75 99 01/27/18 07:00 01/27/18 13:31 01/27/18 07:00 01/27/18 07:00 01/27/18 07:00 Intake and Output: 01/27/18 01/27/18 06:59 18:59 Intake Total 1500 Balance 1500 - Medications Medications: Current Medications Acetaminophen (Tylenol 325mg Tab) 650 mg PO Q6 PRN PRN Reason: Pain, moderate (4-7) Albuterol (Ventolin Hfa 90 Mcg/Actuation (8 G)) 1 puff INH RQ6 PRN PRN Reason: Shortness of Breath Aspirin (Ecotrin) 81 mg PO DAILY [facility] Last Admin: 01/27/18 09:53 Dose: 81 mg Carvedilol (Coreg) 3.125 mg PO BID [facility] Last Admin: 01/27/18 09:09 Dose: 3.125 mg Piperacillin Sod/Tazobactam (Sod 3.375 gm/ Sodium Chloride) 100 mls @ 200 mls/hr IVPB Q6H [facility]; Protocol Last Admin: 01/27/18 13:56 Dose: 200 mls/hr Vancomycin HCl 1,250 mg/ (Sodium Chloride) 250 mls @ 166.6 mls/hr IVPB Q12H [facility]; Protocol Last Admin: 01/27/18 09:54 Dose: 166.6 mls/hr Ipratropium [place] (Atrovent) 0.5 mg IH RQ6 PRN PRN Reason: Shortness of Breath Last Admin: 01/26/18 23:55 Dose: 0.5 mg Lactobacillus Acidophilus (Bacid Acidophilus) 1 cap PO BID [facility] Last Admin: 01/27/18 09:09 Dose: 1 cap Lisinopril (Zestril) 10 mg PO DAILY [facility] Last Admin: 01/27/18 09:09 Dose: 10 mg Rosuvastatin Calcium (Crestor) 5 mg PO HS [facility] Last Admin: 01/26/18 21:00 Dose: 5 mg - Labs Labs: 01/27/18 08:30 01/27/18 08:30 PT 11.4 SECONDS (9.7-12.2) 01/24/18 08:42 INR 1.0 01/24/18 08:42 APTT 29 SECONDS (21-34) 01/24/18 08:42 - Constitutional Appears: Non-toxic - Eye Exam Eye Exam: absent: Scleral icterus - ENT Exam ENT Exam: Mucous Membranes Dry - Neck Exam Neck Exam: Full ROM - Respiratory Exam Respiratory Exam: Decreased Breath Sounds - Cardiovascular Exam Cardiovascular Exam: REGULAR RHYTHM - GI/Abdominal Exam GI & Abdominal Exam: Soft - Extremities Exam Extremities Exam: absent: Pedal Edema - Neurological Exam Neurological Exam: Alert, Oriented x3 Assessment and Plan - Assessment and Plan (Free Text) Assessment: Pneumonia Non-ischemic cardiomyopathy ?Atrial flutter-no EKG supporting afib-flutter Plan: Cont abtx [employer] life vestcoming in to fit the patient Repeat echo in 3 months Case discussed with Dr John Bobo
[2018-01-27] MEDS: Ipratropium 0.02% Inhal Soln (0.5 mg/2.5 ml) UD IH PRN (17:07)
[2018-01-28] MEDS: Piperacillin/Tazobact 3.375 GM in Sodium Chloride 100 ML IVPB SCH ×4 (01:35→20:27)
--- NOTE | 2018-01-28 05:45 | CP.PCM.PN ---
<Gama Pat - Last Filed: 01/28/18 09:02> Subjective - Date & Time of Evaluation Date of Evaluation: 01/28/18 Time of Evaluation: 05:45 - Subjective Subjective: PGY-[address] John Bobo Patient is seen and examined at bedside. Patient had chest tightness yesterday morning. Continues to feel shortness of breath on exertion. Patient admits nebulizer treatment helps with chest tightness and sob. Patient states she has been ambulating more throughout the day yesterday. Patient denies fever, chills, chest pain, nausea, vomiting, diarrhea, constipation, dysuria. Objective - Vital Signs/Intake and Output Vital Signs (last 24 hours): Temp Pulse Resp BP Pulse Ox 98.3 F 73 20 131/76 99 01/27/18 23:25 01/28/18 00:10 01/27/18 23:25 01/27/18 23:25 01/27/18 23:25 - Medications Medications: Current Medications Acetaminophen (Tylenol 325mg Tab) 650 mg PO Q6 PRN PRN Reason: Pain, moderate (4-7) Albuterol (Ventolin Hfa 90 Mcg/Actuation (8 G)) 1 puff INH RQ6 PRN PRN Reason: Shortness of Breath Aspirin (Ecotrin) 81 mg PO DAILY COUNTS INCLUDE 234 BEDS AT THE [facility] Last Admin: 01/27/18 09:53 Dose: 81 mg Carvedilol (Coreg) 3.125 mg PO BID COUNTS INCLUDE 234 BEDS AT THE [facility] Last Admin: 01/27/18 17:11 Dose: 3.125 mg Piperacillin Sod/Tazobactam (Sod 3.375 gm/ Sodium Chloride) 100 mls @ 200 mls/hr IVPB Q6H [facility]; Protocol Last Admin: 01/28/18 01:35 Dose: 200 mls/hr Vancomycin HCl 1,250 mg/ (Sodium Chloride) 250 mls @ 166.6 mls/hr IVPB Q12H [facility]; Protocol Last Admin: 01/27/18 20:58 Dose: 166.6 mls/hr Ipratropium Pillow (Atrovent) 0.5 mg IH RQ6 PRN PRN Reason: Shortness of Breath Last Admin: 01/27/18 17:07 Dose: 0.5 mg Lactobacillus Acidophilus (Bacid Acidophilus) 1 cap PO BID [facility] Last Admin: 01/27/18 17:11 Dose: 1 cap Lisinopril (Zestril) 10 mg PO DAILY COUNTS INCLUDE 234 BEDS AT THE [facility] Last Admin: 01/27/18 09:09 Dose: 10 mg Rosuvastatin Calcium (Crestor) 5 mg PO HS COUNTS INCLUDE 234 BEDS AT THE [facility] Last Admin: 01/27/18 21:10 Dose: 5 mg - Labs Labs: 01/27/18 08:30 01/27/18 08:30 PT 11.4 SECONDS (9.7-12.2) 01/24/18 08:42 INR 1.0 01/24/18 08:42 APTT 29 SECONDS (21-34) 01/24/18 08:42 - Constitutional Appears: Non-toxic, No Acute Distress - Head Exam Head Exam: ATRAUMATIC, NORMAL INSPECTION, NORMOCEPHALIC - Eye Exam Eye Exam: EOMI, Normal appearance - ENT Exam ENT Exam: Mucous Membranes Moist, Normal Exam - Neck Exam Neck Exam: Full ROM, Normal Inspection - Respiratory Exam Respiratory Exam: Decreased Breath Sounds, Clear to Ausculation Bilateral, NORMAL BREATHING PATTERN. absent: Rales, Rhonchi, Wheezes - Cardiovascular Exam Cardiovascular Exam: REGULAR RHYTHM, +S1, +S2 - GI/Abdominal Exam GI & Abdominal Exam: Soft, Normal Bowel Sounds. absent: Distended, Tenderness - Extremities Exam Extremities Exam: Full ROM, Normal Inspection. absent: Calf Tenderness, Tenderness - Back Exam Back Exam: Full ROM, NORMAL INSPECTION - Neurological Exam Neurological Exam: Alert, Awake, Oriented x3 - Psychiatric Exam Psychiatric exam: Flat Affect, Normal Mood - Skin Skin Exam: Dry, Intact, Normal Color, Warm Assessment and Plan - Assessment and Plan (Free Text) Plan: Chest Pain Troponin x3 stable EKG at ED: shows sinus tachycardia, Left bundle branch block; repeat EKG this am demonstrates no acute changes LBBB chronic after review of [facility] records Cardiology Consulted - Dr Hollingsworth, recs appreciated Hgb A1C 6.3, patient with impaired glucose tolerance Echo 01/25: moderate-severe LV systolic dysfunction, EF 30%, dilated L ventricle, borderline dilated L atrium, mild mitral regurgitation, mild to moderate tricuspid regurgitation -Echo done at [facility] shows similar picture Coreg bid, Lisinopril 10 mg daily, ASA, and Statin therapy; continue to monitor blood pressures f/u with [employer] software sales representative on Monday for life vest - follow up with cardio for orders A-flutter Found by EMS, cardizem provided by EMS CHADS2-VASC score of 2 TSH, T4 wnl UDS neg F/u Dr Hollingsworth recs - c/w lovenox 80mg sc Q12h Repeat EKGs inpatient do not demonstrate a-flutter at this time Possible LOC R/o trauma to head CT head w/o contrast STAT - negative Pt AAOx3, no acute distress, doing well Shortness of breath, 2/2 B/L Pneumonia, probable Health care associated pneumonia (HCAP) with increased risk for MDR Chest xray - rt basilar opacity, r/o developing pneumonia, no pneumothorax CTA chest - no embolus, ground glass patchy bilateral infiltrates, suspect multifocal pneumonia. mediastinal and hilar adenopathy 1.5 cm Zosyn x1 dose given in ER C/w Zosyn 3.375gm IVPB Q6hrs C/w Avelox 400mg IVPB Q24hrs C/w Vanco 1gm IVPB Q12hrs ID consult - Dr Moran, recs appreciated Rapid flu test neg, S. pneumo and Legionella Ag neg Pt not observed to be short of breath at bedside, observed ambulating to and from bathroom without concerns, does not need nasal cannula at this time Pt leukopenic on labs this am at 4.6, continue to monitor R renal lesion Simple cyst 2.5 cm on CTA B/L renal U/S: no obstructive uropathy b/l although simple cyst identified in b/l upper pole kidneys, exophytic simple cyst seen related to L kidney corresponding to CT finding also identified 01/24/18; limited corticomedullary differentiation may reflect intrinsic renal disease BUN/Cr 19/0.8, wnl, continue to trend Solitary nodule lung 5mm lower lobe ground glass nodule patient is nonsmoker Can follow as outpatient, no acute intervention needed at this time Elevated D -Dimer r/o DVT, PE D-dimer 610 CTA shows no evidence of PE Venous doppler LE B/L neg Abnormal RBC indices - likely 2/2 iron deficiency anemia hemoglobin on admission: 12.0 MCV 78, MCH: 24.4, MCHC 31.3, RDW: 16.9 Total iron 30, TIBC 269, % saturation 11, Ferritin 100 Stool guaic negative As per patient, no previous colonoscopy - adviced patient to get colonoscopy outpatient after d/c Will not start inpatient PO iron tx at this time until pt finishes treatment for pneumonia PPX Lactobacillus BID after two hours of antibiotics tylenol 650mg PO Q6hrs PRN for fever DVT risk score of 3 - lovenox 80mg SC BID Heart healthy diet Patient not to be given influenza and pneumonia vaccinations Plan to be discussed with Dr Christiano Pat, PGY-1 <John Bobo - Last Filed: 01/28/18 17:34> Objective - Vital Signs/Intake and Output Vital Signs (last 24 hours): Temp Pulse Resp BP Pulse Ox 98.5 F 71 20 142/88 95 01/28/18 15:00 01/28/18 15:00 01/28/18 15:00 01/28/18 15:00 01/28/18 15:00 Intake and Output: 01/28/18 01/28/18 06:59 18:59 Intake Total 600 1250 Balance 600 1250 - Medications Medications: Current Medications Acetaminophen (Tylenol 325mg Tab) 650 mg PO Q6 PRN PRN Reason: Pain, moderate (4-7) Albuterol (Ventolin Hfa 90 Mcg/Actuation (8 G)) 1 puff INH RQ6 PRN PRN Reason: Shortness of Breath Aspirin (Ecotrin) 81 mg PO DAILY COUNTS INCLUDE 234 BEDS AT THE [facility] Last Admin: 01/28/18 09:21 Dose: 81 mg Carvedilol (Coreg) 3.125 mg PO BID COUNTS INCLUDE 234 BEDS AT THE [facility] Last Admin: 01/28/18 09:21 Dose: 3.125 mg Piperacillin Sod/Tazobactam (Sod 3.375 gm/ Sodium Chloride) 100 mls @ 200 mls/hr IVPB Q6H [facility]; Protocol Last Admin: 01/28/18 13:46 Dose: 200 mls/hr Vancomycin HCl 1,250 mg/ (Sodium Chloride) 250 mls @ 166.6 mls/hr IVPB Q12H [facility]; Protocol Last Admin: 01/28/18 09:21 Dose: 166.6 mls/hr Ipratropium Pillow (Atrovent) 0.5 mg IH RQ6 PRN PRN Reason: Shortness of Breath Last Admin: 01/28/18 14:29 Dose: 0.5 mg Lactobacillus Acidophilus (Bacid Acidophilus) 1 cap PO BID [facility] Last Admin: 01/28/18 09:21 Dose: 1 cap Lisinopril (Zestril) 10 mg PO DAILY COUNTS INCLUDE 234 BEDS AT THE [facility] Last Admin: 01/28/18 09:21 Dose: 10 mg Rosuvastatin Calcium (Crestor) 5 mg PO HS COUNTS INCLUDE 234 BEDS AT THE [facility] Last Admin: 01/27/18 21:10 Dose: 5 mg - Labs Labs: 01/28/18 08:24 01/28/18 08:24 PT 11.4 SECONDS (9.7-12.2) 01/24/18 08:42 INR 1.0 01/24/18 08:42 APTT 29 SECONDS (21-34) 01/24/18 08:42 Attending/Attestation - Attestation I have personally seen and examined this patient.: Yes I have fully participated in the care of the patient.: Yes I have reviewed all pertinent clinical information, including history, physical exam and plan: Yes Notes (Text): 01/28/18 17:23 Patient was seen and examined at 7:30 AM 01/28/18 Upon FULL ROS she currently has no complaints HEENT, Cardio, Resp, GI, Ext, CN II through XII are unremarkable Records from [facility] were reviewed 01/27/18: 1). She had Cardiac Cath performed on 01/16/18 and this showed nonischemic cardiomyopathy, no significant CAD, LV function between 30 and 35% 2). Bilateral Venous Dopplers 01/08/16 were negative 3). EKG 01/17/18 showed LBBB 4). CXR 01/09/18 showed resolving infiltrates and 01/11/18 and 01/14/18 showed no consolidation 5). CT Angio Chest 01/07/18 showed patchy right basilar opacity and NO PE 6). Renal U/S 01/09/18 showed 3.2 cm exophytic left renal cyst and 1.2 cm right upper pole cyst The plan from the team at [place] was the followin). Medically manage the nonischemic cardiomyopathy for 3 months 2). If no improvement upon repeat Echo/Cardiac MRI in 3 months from January 2018 , then she will need DETENTION ATTENDANT Defibrillator 3). She was given instructions to follow up with Offbearer Dr. Brandon Mcgraw at [facility] Please note that the patient never had the prescriptions with which she was discharged with from [facility] filled. Upon this admission, she did not reveal this information to us until today when questioned about these me dications after review of the records from [facility]. I spoke with Glue Size Machine Operator Dr. Hollingsworth 01/27/18: 1). We will discontinue the therapeutic Lovenox 01/27/18 2). Continue medical management of the nonischemic cardiomyopathy: Coreg 3.125 mg PO 2x/day, Lisinopril 10 mg PO 1x/day, ASA 81 mg PO 1x/day (NO PLAVIX), Crestor 5 mg PO 1x/day. Compliance with these medications was stressed to the patient. 3). Await [employer] Life Vest delivery which will likely occur on Monday01/29/18. Dr. Hollingsworth has already completed the [employer] application form in his office: patient was explained the importance of compliance of wearing this vest and reason why it needed to be worn 4). She will need to schedule appointment with our clinic to help coordinate her care and cardiology follow up with Echo/Cardiac MRI in late March 2018 or early April 2018 to see if there has been any improvement in her nonischemic cardiomyopathy. If NO improvement, then the clinic should contact Dr. Hollingsworth's office and he will help to arrange for DETENTION ATTENDANT Defibrillator. As per ID Dr. Moran's recommendations we will repeat Chest X Ray PA/Lateral on morning of Monday01/29/18. As blood culture is negative to date, NO fevers, negative workup (Urine Legionella Ag, Urine Strep pneumoniae Ag, Mycoplasma IgG IgM, Rapid Influenza were all negative), speak with Dr. Moran after repeat Chest X Raa PA/Lateral on Monday01/29/18 to see if she can be switched over to PO antibiotic and discharged as long [employer] Life Vest is delivered For the bilateral pneumonia, continue the Zosyn 3.375 gm IV Q6H and she has increased the Vancomycin to 1,250 mg IV Q12H Follow up the Vancomycin Trough 01/28/18 at 7:30 PM Patient will need to have Colonoscopy arranged through the [facility] due to the Iron Deficiency Anemia and she has not had a Colonoscopy ever. Start Iron 325 mg PO 1x/day after she has completed treatment for the bilateral pneumonia. She will need to be instructed to continue an over the counter Probiotic for 30 days beyond last day of antibiotic. The details surrounding her nonischemic cardiomyopathy, the need for follow up with our clinic, the importance of medication compliance, and the treatment for the bilateral pneumonia was explained in detail in Icelandic with the help of Degreasing Solution Mixer from [facility] on 01/27/18 and patient expressed understanding. John Bobo D.O.
[2018-01-28] MEDS: Ipratropium 0.02% Inhal Soln (0.5 mg/2.5 ml) UD IH PRN ×3 (08:06→21:45)
[2018-01-28 08:35] LABS: BASO % 0.6 % (0.0-2.0); EOS # 0.4 K/uL (0.0-0.7); EOS % 10.4 % (0.0-4.0); HEMOGLOBIN 10.9 g/dL (11.0-16.0); LYMPH % 23.9 % (20.0-40.0); MEAN CELL VOLUME 76.6 fL (81.0-99.0); MEAN CORPUSCULAR HEMOGLOBIN 24.8 pg (27.0-31.0); MEAN CORPUSCULAR HGB CONC 32.3 g/dL (33.0-37.0); MEAN PLATELET VOLUME 9.5 fL (7.2-11.7); MONO # 0.3 K/uL (0.0-0.8); MONO % 7.1 % (0.0-10.0); NEUT # 2.4 K/uL (1.8-7.0); RBC 4.39 Mil/uL (3.80-5.20); RED CELL DISTRIBUTION WIDTH 16.7 % (11.5-14.5); WHITE BLOOD COUNT 4.2 K/uL (4.8-10.8)
[2018-01-28 09:03] LABS: BLOOD UREA NITROGEN 18 mg/dL (7-17); GFR NON-AFRICAN AMERICAN > 60
[2018-01-28 09:04] LABS: ALB/GLOB RATIO 1.2 (1.0-2.1); ALBUMIN 3.7 g/dL (3.5-5.0); ALT/SGPT 90 U/L (9-52); AST/SGOT 93 U/L (14-36); CALCIUM 9.6 mg/dl (8.6-10.4)
[2018-01-28] MEDS: Lactobacillus Acidophilus 500 MU Cap PO SCH ×2 (09:21→17:28)
[2018-01-29] MEDS: Piperacillin/Tazobact 3.375 GM in Sodium Chloride 100 ML IVPB SCH ×3 (01:35→14:03)
--- NOTE | 2018-01-29 07:40 | PN ---
DATE: 01/28/2018 The patient is afebrile. She is still with oxygen. Grady Moran MD
[2018-01-29 08:07] LABS: BASO % 0.8 % (0.0-2.0); EOS # 0.4 K/uL (0.0-0.7); EOS % 10.7 % (0.0-4.0); HEMOGLOBIN 10.5 g/dL (11.0-16.0); LYMPH % 24.9 % (20.0-40.0); MEAN CELL VOLUME 76.6 fL (81.0-99.0); MEAN CORPUSCULAR HEMOGLOBIN 24.7 pg (27.0-31.0); MEAN CORPUSCULAR HGB CONC 32.3 g/dL (33.0-37.0); MEAN PLATELET VOLUME 9.4 fL (7.2-11.7); MONO # 0.3 K/uL (0.0-0.8); MONO % 7.5 % (0.0-10.0); NEUT # 2.3 K/uL (1.8-7.0); NEUT % 56.1 % (50.0-75.0); RBC 4.24 Mil/uL (3.80-5.20); RED CELL DISTRIBUTION WIDTH 16.6 % (11.5-14.5); WHITE BLOOD COUNT 4.1 K/uL (4.8-10.8)
[2018-01-29 08:19] LABS: BLOOD UREA NITROGEN 17 mg/dL (7-17); GFR NON-AFRICAN AMERICAN > 60
[2018-01-29 08:20] LABS: ALB/GLOB RATIO 1.2 (1.0-2.1); ALBUMIN 3.4 g/dL (3.5-5.0); ALT/SGPT 171 U/L (9-52); AST/SGOT 149 U/L (14-36); CALCIUM 9.2 mg/dl (8.6-10.4)
--- NOTE | 2018-01-29 09:04 | RAD ---
Date of service: 01/29/2018 HISTORY: Bilateral Pneumonia F/U COMPARISON: No prior. TECHNIQUE: Chest PA and lateral FINDINGS: LUNGS: Improving aeration at the right lung base. Persistent patchy increased markings at the left lung base. Nodular densities at both lung bases may represent nipple shadows. Continued interval follow-up may helpful. PLEURA: Blunted bilateral costophrenic angles may represent pleural thickening and or trace effusions. CARDIOVASCULAR: Aortic atherosclerotic calcification present Normal. OSSEOUS STRUCTURES: Degenerative changes in the spine. VISUALIZED UPPER ABDOMEN: Normal. OTHER FINDINGS: None. IMPRESSION: Biapical pleural thickening. Mild venous congestion. Right hilar prominence. Patchy increased markings at the right lung base. Blunted bilateral costophrenic angles may represent pleural thickening and or trace effusions.
[2018-01-29] MEDS: Enoxaparin 40 mg Syringe SC SCH (10:07)
[2018-01-29] MEDS: Lactobacillus Acidophilus 500 MU Cap PO SCH ×2 (10:07→17:35)
--- NOTE | 2018-01-29 14:47 | CP.PCM.PN ---
Subjective - Date & Time of Evaluation Date of Evaluation: 01/29/18 Time of Evaluation: 14:30 - Subjective Subjective: dictated Objective - Vital Signs/Intake and Output Vital Signs (last 24 hours): Temp Pulse Resp BP Pulse Ox 98.6 F 90 20 127/82 100 01/29/18 08:00 01/29/18 08:01 01/29/18 08:00 01/29/18 11:57 01/29/18 08:00 Intake and Output: 01/29/18 01/29/18 06:59 18:59 Intake Total 600 Balance 600 - Medications Medications: Current Medications Acetaminophen (Tylenol 325mg Tab) 650 mg PO Q6 PRN PRN Reason: Pain, moderate (4-7) Albuterol (Ventolin Hfa 90 Mcg/Actuation (8 G)) 1 puff INH RQ6 PRN PRN Reason: Shortness of Breath Aspirin (Ecotrin) 81 mg PO DAILY [facility] Last Admin: 01/29/18 10:07 Dose: 81 mg Carvedilol (Coreg) 3.125 mg PO BID [facility] Last Admin: 01/29/18 10:07 Dose: 3.125 mg Enoxaparin Sodium (Lovenox) 40 mg SC DAILY [facility] Last Admin: 01/29/18 10:07 Dose: 40 mg Furosemide (Lasix) 20 mg PO DAILY [facility] Last Admin: 01/29/18 11:57 Dose: 20 mg Piperacillin Sod/Tazobactam (Sod 3.375 gm/ Sodium Chloride) 100 mls @ 200 mls/hr IVPB Q6H [facility]; Protocol Last Admin: 01/29/18 14:03 Dose: 200 mls/hr Vancomycin HCl 1,250 mg/ (Sodium Chloride) 250 mls @ 166.6 mls/hr IVPB Q12H [facility]; Protocol Last Admin: 01/29/18 09:00 Dose: 166.6 mls/hr Ipratropium Benedicta (Atrovent) 0.5 mg IH RQ6 PRN PRN Reason: Shortness of Breath Last Admin: 01/28/18 21:45 Dose: 0.5 mg Lactobacillus Acidophilus (Bacid Acidophilus) 1 cap PO BID [facility] Last Admin: 01/29/18 10:07 Dose: 1 cap Lisinopril (Zestril) 10 mg PO DAILY [facility] Last Admin: 01/29/18 10:07 Dose: 10 mg Rosuvastatin Calcium (Crestor) 5 mg PO HS [facility] Last Admin: 01/28/18 21:27 Dose: 5 mg - Labs Labs: 01/29/18 07:49 01/29/18 07:49 PT 11.4 SECONDS (9.7-12.2) 01/24/18 08:42 INR 1.0 01/24/18 08:42 APTT 29 SECONDS (21-34) 01/24/18 08:42
--- NOTE | 2018-01-29 15:58 | CP.PCM.PN ---
Addendum entered and electronically signed by Adeola Heard DO 01/29/18 17:24: Addendum: Spoke with Dr. Moran (ID). She recommends outpatient medications as follows: Vantin 200 mg PO BID x 7 days and acidophilus 1 capsule PO BID x 10 days. -Adeola Heard DO PGY-1 Original Note: <Adeola Heard - Last Filed: 01/29/18 16:02> Subjective - Date & Time of Evaluation Date of Evaluation: 01/29/18 Time of Evaluation: 15:56 - Subjective Subjective: Medicine service - Dr. Shepherd Patient seen and examined at bedside this morning. Patient denies chest pain, shortness or breath, and palpitations. She was in no acute distress. Objective - Vital Signs/Intake and Output Vital Signs (last 24 hours): Temp Pulse Resp BP Pulse Ox 98.6 F 63 20 134/80 100 01/29/18 15:44 01/29/18 15:44 01/29/18 15:44 01/29/18 15:44 01/29/18 15:44 Intake and Output: 01/29/18 01/29/18 06:59 18:59 Intake Total 600 1250 Balance 600 1250 - Medications Medications: Current Medications Acetaminophen (Tylenol 325mg Tab) 650 mg PO Q6 PRN PRN Reason: Pain, moderate (4-7) Albuterol (Ventolin Hfa 90 Mcg/Actuation (8 G)) 1 puff INH RQ6 PRN PRN Reason: Shortness of Breath Aspirin (Ecotrin) 81 mg PO DAILY [facility] Last Admin: 01/29/18 10:07 Dose: 81 mg Carvedilol (Coreg) 3.125 mg PO BID [facility] Last Admin: 01/29/18 10:07 Dose: 3.125 mg Enoxaparin Sodium (Lovenox) 40 mg SC DAILY [facility] Last Admin: 01/29/18 10:07 Dose: 40 mg Furosemide (Lasix) 20 mg PO DAILY [facility] Last Admin: 01/29/18 11:57 Dose: 20 mg Piperacillin Sod/Tazobactam (Sod 3.375 gm/ Sodium Chloride) 100 mls @ 200 mls/hr IVPB Q6H [facility]; Protocol Last Admin: 01/29/18 14:03 Dose: 200 mls/hr Vancomycin HCl 1,250 mg/ (Sodium Chloride) 250 mls @ 166.6 mls/hr IVPB Q12H [facility]; Protocol Last Admin: 01/29/18 09:00 Dose: 166.6 mls/hr Ipratropium Reliance (Atrovent) 0.5 mg IH RQ6 PRN PRN Reason: Shortness of Breath Last Admin: 01/28/18 21:45 Dose: 0.5 mg Lactobacillus Acidophilus (Bacid Acidophilus) 1 cap PO BID [facility] Last Admin: 01/29/18 10:07 Dose: 1 cap Lisinopril (Zestril) 10 mg PO DAILY [facility] Last Admin: 01/29/18 10:07 Dose: 10 mg Rosuvastatin Calcium (Crestor) 5 mg PO HS [facility] Last Admin: 01/28/18 21:27 Dose: 5 mg - Labs Labs: 01/29/18 07:49 01/29/18 07:49 PT 11.4 SECONDS (9.7-12.2) 01/24/18 08:42 INR 1.0 01/24/18 08:42 APTT 29 SECONDS (21-34) 01/24/18 08:42 - Constitutional Appears: No Acute Distress - Head Exam Head Exam: ATRAUMATIC - Respiratory Exam Respiratory Exam: Clear to Ausculation Bilateral, NORMAL BREATHING PATTERN - Cardiovascular Exam Cardiovascular Exam: REGULAR RHYTHM - GI/Abdominal Exam GI & Abdominal Exam: Soft, Normal Bowel Sounds - Extremities Exam Extremities Exam: Normal Inspection. absent: Calf Tenderness - Psychiatric Exam Psychiatric exam: Normal Affect, Normal Mood Assessment and Plan - Assessment and Plan (Free Text) Assessment: 62 y/o f with PMHx of asthma, [place] x 2 presented to ED for chest pain and SOB on 01/24. Patient denies chest pain and SOB today and feels fine. Patient has been afebrile since admission. 1) nonischemic cardiomyopathy -per ECHO on 01/25 patient with EF of 30% and with dilated LV -continue with coreg 3.125 PO BID -continue with lisinopril 10 mg daily -[employer] fitting company came today per nursing, pending discharge for tomorrow. 2) Aflutter - currently denies palpitations, tele wnl -[id number] of 2 -lovenox 80 mg sq q12 h per cardio (Dr. Hollingsworth) recs 3) PNA - treatment for HCAP -continue with zosyn 3.375 mg IV q6h and vanc 1g q12h -pending ID recs (Dr. Moran) for transition to PO upon discharge 4) history of [place] - currently stable and denies chest pain -coreg, lisinopril (as above), rosuvastatin 5 mg PO, and aspirin 81 mg -secured entrance monitor to be continued 5) history of asthma -atrovent and albuterol both PRN DVT ppx: lovenox 40 mg sq q12h seen and discussed with Dr. Cora Heard, PGY-1 <Brea Shepherd V - Last Filed: 01/29/18 22:09> Objective - Vital Signs/Intake and Output Vital Signs (last 24 hours): Temp Pulse Resp BP Pulse Ox 98.6 F 63 20 134/80 100 01/29/18 15:44 01/29/18 15:44 01/29/18 15:44 01/29/18 15:44 01/29/18 15:44 Intake and Output: 01/29/18 01/30/18 18:59 06:59 Intake Total 1250 Balance 1250 - Medications Medications: Current Medications Acetaminophen (Tylenol 325mg Tab) 650 mg PO Q6 PRN PRN Reason: Pain, moderate (4-7) Albuterol (Ventolin Hfa 90 Mcg/Actuation (8 G)) 1 puff INH RQ6 PRN PRN Reason: Shortness of Breath Aspirin (Ecotrin) 81 mg PO DAILY [facility] Last Admin: 01/29/18 10:07 Dose: 81 mg Carvedilol (Coreg) 3.125 mg PO BID [facility] Last Admin: 01/29/18 17:35 Dose: 3.125 mg Cefpodoxime Proxetil (Vantin) 200 mg PO Q12H [facility]; Protocol Last Admin: 01/29/18 20:01 Dose: 200 mg Enoxaparin Sodium (Lovenox) 40 mg SC DAILY [facility] Last Admin: 01/29/18 10:07 Dose: 40 mg Furosemide (Lasix) 20 mg PO DAILY [facility] Last Admin: 01/29/18 11:57 Dose: 20 mg Ipratropium Reliance (Atrovent) 0.5 mg IH RQ6 PRN PRN Reason: Shortness of Breath Last Admin: 01/29/18 18:56 Dose: 0.5 mg Lactobacillus Acidophilus (Bacid Acidophilus) 1 cap PO BID [facility] Last Admin: 01/29/18 17:35 Dose: 1 cap Lisinopril (Zestril) 10 mg PO DAILY [facility] Last Admin: 01/29/18 10:07 Dose: 10 mg Rosuvastatin Calcium (Crestor) 5 mg PO HS [facility] Last Admin: 01/28/18 21:27 Dose: 5 mg - Labs Labs: 01/29/18 07:49 01/29/18 07:49 PT 11.4 SECONDS (9.7-12.2) 01/24/18 08:42 INR 1.0 01/24/18 08:42 APTT 29 SECONDS (21-34) 01/24/18 08:42 - Constitutional Appears: Non-toxic - Head Exam Head Exam: NORMAL INSPECTION - Eye Exam Eye Exam: EOMI Pupil Exam: NORMAL ACCOMODATION - ENT Exam ENT Exam: Mucous Membranes Dry - Respiratory Exam Respiratory Exam: Rales (bibasilar rales). absent: Rhonchi, Wheezes, Respiratory Distress - Cardiovascular Exam Cardiovascular Exam: +S1, +S2, +S4 - GI/Abdominal Exam GI & Abdominal Exam: absent: Distended, Firm, Guarding, Rigid, Tenderness, Rebound - Extremities Exam Extremities Exam: absent: Pedal Edema, Tenderness - Back Exam Back Exam: absent: CVA tenderness (L), CVA tenderness (R), rash noted - Neurological Exam Neurological Exam: Alert, Awake, Oriented x3 Neuro motor strength exam: Left Upper Extremity: 5, Right Upper Extremity: 5, Left Lower Extremity: 5, Right Lower Extremity: 5 - Skin Skin Exam: Dry, Intact, Normal Color, Warm Attending/Attestation - Attestation I have personally seen and examined this patient.: Yes I have fully participated in the care of the patient.: Yes I have reviewed all pertinent clinical information, including history, physical exam and plan: Yes Notes (Text): Patient seen, examined, and case discussed with medical records director. patient seen at bedside this morning. Patient reports she is feeling better. She reports shortness of breathe, but reports with nebulizer treatment she feels better. Patient understands she has a big heart in terms of size but does not understand she also has a weak heart which does not allow her to pump well. We need to provide her better education regards to heart failure prior to discharge. I did indicate to her she is going to be fitted for [employer], which acts to protect her heart from deadly heart rhythms until she can get to the hospital. I believe she understands this. We will reiterate this again before she is discharge. Chest xray is improved compared to initial. Will start patient on low dose diuretic to relieve congestion. Discussed with ID, patient for possible d/c tomorrow on PO antibiotic. Assessment/Plan 1) Nonischemic cardiomyopathy Prior History of [place] Assessment/Plan * Cardiology (Dr. Hollingsworth) on board * Aspirin 81mg PO daily * Coreg 3.125mg PO BID * Lasix 20mg PO daily * Lisinopril 10mg PO daily * Crestor 5mg PO qHS held secondary to transaminitis * Echocardiogram (01/25/18): moderate-severe LV systolic dysfunction. dilated LV. Borderline dilated LA and mild MR, mild to moderate TR * Fluid restriction * Monitor intake and output * Monitor daily weights * 1). Medically manage the nonischemic cardiomyopathy for 3 months * 2). She will need to schedule appointment with our clinic to help coordinate her care and cardiology follow up with Echo/Cardiac MRI in late March 2018 or early April 2018 to see if there has been any improvement in her nonischemic cardiomyopathy. If NO improvement, then the clinic should contact, forwarder operator Dr. Hollingsworth's office and he will help to arrange for [employer] Defibrillator. (patient is pending junior. if she is unable to afford follow- up with Dr. Hollingsworth; she should obtain cardiology referral at her follow-up appoint in the clinic) * [employer] to come today to fit for sudden cardiac prophylaxis * a1c: 6.3 * Will need diet and lifestyle modifications to prevent overt diabetes in the next 3-4 months. Recommend repeat a1c in 6 months * Lipid Panel: T, Cholestrol: 155, LDL; 84, HDL: 47 2) Pneumonia, Health Care Associated Assessment/Plan * Infectious Disease (Dr. Moran) on board * CT Chest (01/24/18): no large central or segmental pulmonary embolus identified. Ground glass patchy bilateral hazy infiltrates suspicious for multifocal pneumonia. 5mm right lower ground glass nodule. * Exophytic 2.5 cm left renal hypodense lesion. Left adrenal gladn hypertrophy. Small hiatal hernia * Chest PA and Lateral (10/22/18): biapical pleural thickening. Mild venous congestion. Right hilar prominence. Patchy increased markings at right lung base. Blunted bilateral costophrenic angles may present pleural thickening and/or trace effusions 3) Renal Cyst Assessment/Plan * Renal US (01/24/18): no obstructive uropathy b/l. simple cyst identified in b/l upper pole kidneys. Exophytic simple cyst is seen related to left kidney corresponding to CT finding also identifed to 01/24/18. Limited corticomedullary differentiation may reflect intrinsic medical renal disease * Will need outpatient monitoring of renal cysts 4) Impaired Glucose Tolerance Assessment/Plan * a1c: 6.3 * Will need diet and lifestyle modifications to prevent overt diabetes in the next 3-4 months * Recommend repeat a1c in 6 months * Lipid Panel: T, Cholestrol: 155, LDL; 84, HDL: 47 5) History of Asthma Assessment/Plan * Albuterol 1 puff inhaled Q6 hour PRN shortness of breathe 6) Hypertension Assessment/Plan * Coreg 3.125mg PO BID * Lasix 20mg PO daily * Lisinopril 10mg PO daily 7) Prophylactic measure * Lovenox 40mg subq daily Disposition: Patient to be setup with [employer] today for [employer]. Patient benefit for one more day of IV abx prior to transitioning to PO for pneumonia. Upon discharge patient will need the following prescriptions filled (note will need to emphasized they are affordable: majority): 1) Coreg 3.125mg PO BID (60 tabs/0) 2) Lasix 20mg PO daily (30 tabs/0) 3) Lisinopril 10mg PO daily (30 tabs/0) 4) Aspirin 81mg PO daily (otc available) 5):Vantin 200 mg PO BID x 6 days (12 tabs/0) 6) Bacid 1 tab PO BID x 8 days 7) Albuterol HFA 1 puff inhaled every 6hours as needed for shortness of breathe (1 inhaler/0 refill)-->She will need a voucher for this. She will need education regarding fluid restriction in light of her heart failure. She will need to create a diary of her weight at home to monitor for any weight gain that could be a sign of her heart failure not being under control. She will need a clinic within 1 week of hospitalization. She will need refill of her medications as noted above 1-4, 7, and referral to cardiology for monitor her severe chf. She will need repeat echo in 3 months while being compliant on her medications. Patient recommended to establish care at the [facility] in [place], located on [address] [place] [address]. Phone number: [phone] to call for an appointment within one week of hospital discharge.
[2018-01-29] MEDS: Ipratropium 0.02% Inhal Soln (0.5 mg/2.5 ml) UD IH PRN (18:56)
[2018-01-29] MEDS: Cefpodoxime (Vantin) 200 mg Tab PO SCH (20:01)
[2018-01-29] MEDS ORDERED: Albuterol HFA 90 mcg/actuation (8 g) INH PRN (21:56)
--- NOTE | 2018-01-29 22:21 | PN ---
DATE: 01/29/2018 SUBJECTIVE: The patient had a CT, had a cardiac cath at [facility] which showed normal coronaries, showed [id number] LV systolic function, hence she got vest. She was wearing a defibrillator and vest at this time and the patient was feeling little better. She still had oxygen on. She says she feels better with the albuterol. She is breathing easier though. Had a chest x-ray done, so I am going to follow that. PHYSICAL EXAMINATION: VITAL SIGNS: Showed temperature is 98.6, pulse 63, blood pressure 134/80, respirations are 20. HEENT: Head is atraumatic, normocephalic. NECK: Supple. LUNGS: Clear. HEART: S1, S2 are regular. Decreased breath sounds, occasional crackles. ABDOMEN: Soft, nontender. No guarding, no rigidity present. EXTREMITIES: Have no edema. LABORATORY DATA: White count is 4.1, hemoglobin is 10.5. Her chemistries show that CO2 is 30, BUN is 17, creatinine 0.7. AST and ALT are little elevated at this time, may be due to the medications. She is on Zosyn. We will switch the Zosyn to Vantin today and see how she does clinically. If she is stable tomorrow, she probably can go home on IV antibiotics. This was from my end. We will put her on Cefzil. I am looking for an oral medication to put her on and we will do so and we will follow. IMPRESSION: She had some pneumonia, bilateral . She has severe cardiomyopathy, left ventricular dysfunction and is now on defibrillator and we will send her home on Vantin pain as she did have recent hospitalization and catheterization, and has history of asthma also. Grady Moran MD
[2018-01-30] MEDS: Cefpodoxime (Vantin) 200 mg Tab PO SCH (05:43)
[2018-01-30] MEDS: Ipratropium 0.02% Inhal Soln (0.5 mg/2.5 ml) UD IH PRN (05:54)
[2018-01-30 07:33] VITALS: RESP 20; TEMP 98.4; O2SAT 100
[2018-01-30 07:48] VITALS: PULSE 77
[2018-01-30] MEDS: Lactobacillus Acidophilus 500 MU Cap PO SCH (09:52)
[2018-01-30] MEDS: Enoxaparin 40 mg Syringe SC SCH (09:53)
[2018-01-30 09:54] VITALS: BP 142/80
--- NOTE | 2018-01-30 13:22 | CP.PCM.DIS ---
Provider - Provider Date of Admission: 01/24/18 14:02 Attending physician: Brea Shepherd DO Primary care physician: none Consults: Cardio: Darrick, ID: Luisa Time Spent in preparation of Discharge (in minutes): 45 Diagnosis - Discharge Diagnosis (1) Cardiomyopathy Status: Acute (2) Renal cyst Status: Acute (3) Pre-diabetes Status: Acute Hospital Course - Lab Results Lab Results: Micro Results 01/24/18 08:38 Blood-Venous Blood Culture - Final NO GROWTH AFTER 5 DAYS 01/24/18 08:38 Blood-Venous Gram Stain - Final TEST NOT PERFORMED 01/24/18 11:14 Blood-Venous Blood Culture - Final NO GROWTH AFTER 5 DAYS 01/24/18 11:14 Blood-Venous Gram Stain - Final TEST NOT PERFORMED Most Recent Lab Values WBC 4.1 K/uL (4.8-10.8) L 01/29/18 07:49 RBC 4.24 Mil/uL (3.80-5.20) 01/29/18 07:49 Hgb 10.5 g/dL (11.0-16.0) L 01/29/18 07:49 Hct 32.5 % (34.0-47.0) L 01/29/18 07:49 MCV 76.6 fL (81.0-99.0) L 01/29/18 07:49 MCH 24.7 pg (27.0-31.0) L 01/29/18 07:49 MCHC 32.3 g/dL (33.0-37.0) L 01/29/18 07:49 RDW 16.6 % (11.5-14.5) H 01/29/18 07:49 Plt Count 212 K/uL (130-400) 01/29/18 07:49 MPV 9.4 fL (7.2-11.7) 01/29/18 07:49 Neut % (Auto) 56.1 % (50.0-75.0) 01/29/18 07:49 Lymph % (Auto) 24.9 % (20.0-40.0) 01/29/18 07:49 [place] % (Auto) 7.5 % (0.0-10.0) 01/29/18 07:49 Eos % (Auto) 10.7 % (0.0-4.0) H 01/29/18 07:49 Baso % (Auto) 0.8 % (0.0-2.0) 01/29/18 07:49 Neut # (Auto) 2.3 K/uL (1.8-7.0) 01/29/18 07:49 Lymph # (Auto) 1.0 K/uL (1.0-4.3) 01/29/18 07:49 [place] # (Auto) 0.3 K/uL (0.0-0.8) 01/29/18 07:49 Eos # (Auto) 0.4 K/uL (0.0-0.7) 01/29/18 07:49 Baso # (Auto) 0.0 K/uL (0.0-0.2) 01/29/18 07:49 Retic Count 1.5 % (0.5-1.5) 01/27/18 08:30 PT 11.4 SECONDS (9.7-12.2) 01/24/18 08:42 INR 1.0 01/24/18 08:42 APTT 29 SECONDS (21-34) 01/24/18 08:42 D-Dimer, Quantitative 610 ng/mlDDU (0-243) H 01/24/18 10:41 Puncture Site Left radial 01/24/18 08:54 pCO2 43 mm/Hg (35-45) 01/24/18 08:54 pO2 88 mm/Hg (80-100) 01/24/18 08:54 HCO3 20.4 mmol/L (21-28) L 01/24/18 08:54 ABG pH 7.29 (7.35-7.45) L 01/24/18 08:54 ABG Total CO2 22.0 mmol/L (22-28) 01/24/18 08:54 ABG O2 Saturation 97.5 % (95-98) 01/24/18 08:54 ABG Base Excess -5.7 mmol/L (-2.0-3.0) L 01/24/18 08:54 Jonathan Test Pos 01/24/18 08:54 ABG Potassium 3.6 mmol/L (3.6-5.2) 01/24/18 08:54 Sodium 138.0 mmol/l (132-148) 01/24/18 08:54 Chloride 107.0 mmol/L (98-107) 01/24/18 08:54 Glucose 227 mg/dl (65-105) H 01/24/18 08:54 Lactate 1.8 mmol/L (0.7-2.1) 01/24/18 08:54 Liter Flow 2.0 01/24/18 08:54 Sodium 140 mmol/L (132-148) 01/29/18 07:49 Potassium 4.2 mmol/L (3.6-5.2) 01/29/18 07:49 Chloride 103 mmol/L (98-107) 01/29/18 07:49 Carbon Dioxide 31 mmol/L (22-30) H 01/29/18 07:49 Anion Gap 10 (10-20) 01/29/18 07:49 BUN 17 mg/dL (7-17) 01/29/18 07:49 Creatinine 0.7 mg/dL (0.7-1.2) 01/29/18 07:49 Est GFR ( Amer) > 60 01/29/18 07:49 Est GFR (Non-Af Amer) > 60 01/29/18 07:49 Random Glucose 94 mg/dL (65-105) 01/29/18 07:49 Hemoglobin A1c 6.3 % (4.2-6.5) 01/26/18 07:12 Calcium 9.2 mg/dl (8.6-10.4) 01/29/18 07:49 Phosphorus 4.4 mg/dL (2.5-4.5) 01/29/18 07:49 Magnesium 2.1 mg/dL (1.6-2.3) 01/29/18 07:49 Iron 30 ug/dL (37-170) L 01/26/18 07:12 TIBC 269 ug/dL (250-450) 01/26/18 07:12 % Saturation 11 (20-55) L 01/26/18 07:12 Ferritin 100.0 ng/mL 01/26/18 07:12 Total Bilirubin 0.3 mg/dL (0.2-1.3) 01/29/18 07:49 AST 149 U/L (14-36) H D 01/29/18 07:49 ALT 171 U/L (9-52) H D 10/22/18 07:49 Alkaline Phosphatase 48 U/L (38-126) 01/29/18 07:49 Total Creatine Kinase 76 U/L (30-135) 01/24/18 20:54 CK-MB (Mass) 2.73 ng/mL (0.0-3.38) 01/24/18 20:54 Troponin I 0.0770 ng/mL (0.00-0.120) 01/24/18 20:54 NT-Pro-B Natriuret Pep 840 pg/mL (0-900) 01/24/18 08:42 Total Protein 6.3 g/dL (6.3-8.3) 01/29/18 07:49 Albumin 3.4 g/dL (3.5-5.0) L 01/29/18 07:49 Globulin 2.8 gm/dL (2.2-3.9) 01/29/18 07:49 Albumin/Globulin Ratio 1.2 (1.0-2.1) 01/29/18 07:49 Triglycerides 91 mg/dL (0-149) 01/26/18 07:12 Cholesterol 155 mg/dL (0-199) 01/26/18 07:12 LDL Cholesterol Direct 84 mg/dL (0-129) 01/26/18 07:12 HDL Cholesterol 47 mg/dL (30-70) 01/26/18 07:12 Vitamin B12 651 pg/mL (239-931) 01/27/18 08:30 Folate 8.3 ng/mL 01/27/18 08:30 Free T4 1.09 ng/dL (0.78-2.19) 01/24/18 15:22 TSH 3rd Generation 1.13 mIU/L (0.46-4.68) 01/24/18 15:22 Arterial Blood Potassium 3.6 mmol/L (3.6-5.2) 01/24/18 08:54 Stool Occult Blood Negative (NEGATIVE) 01/27/18 21:58 Vancomycin Trough 16.9 ug/mL (5.0-10.0) H 01/28/18 19:35 Urine Opiates Screen Negative (NEGATIVE) 01/24/18 16:20 Urine Methadone Screen Negative (NEGATIVE) 01/24/18 16:20 Ur Barbiturates Screen Negative (NEGATIVE) 01/24/18 16:20 Ur Phencyclidine Scrn Negative (NEGATIVE) 01/24/18 16:20 Ur Amphetamines Screen Negative (NEGATIVE) 01/24/18 16:20 U Benzodiazepines Scrn Negative (NEGATIVE) 01/24/18 16:20 U Oth Cocaine Metabols Negative (NEGATIVE) 01/24/18 16:20 U Cannabinoids Screen Negative (NEGATIVE) 01/24/18 16:20 Influenza Typ A,B (EIA) Negative for flu a/b (NEGATIVE) 01/24/18 15:22 Ur L.pneumophila Ag Negative (NEGATIVE) 01/25/18 08:36 Mycoplasma pneumon IgG <=0.90 (<=0.90) 01/24/18 15:22 Mycoplasma pneumon IgM 21 U/mL (<770) 01/24/18 15:22 S. pneumoniae Antigen Negative (NEGATIVE) 01/24/18 14:02 - Hospital Course Hospital Course: PMD: Blade Brown (former), currently does not have PMD Code status: full code, proxy: Wilmer Barton (son), advanced directive: none Allergies: NKDA Pmhx: Asthma, SD x2, HTN Shx: 2 csections, ovarian cyst removal Famhx: denies Sochx: denies tobacco use. Drinks one glass of wine with dinner ocassionally. denies illicit drug use. works as homemaker meds: none During admission: Patient is a 62 year old female with pmhx of asthma, SD x 2 who came to the ED for chest pain and shortness of that started about 7 am this morning while at home by herself. Patient states she was admitted for a similar presentation to [facility] on 01/06/18. Patient states she had an SD then as well, and she had a catheterization there, which she does not know what the results were. Patient was discharge after a week. Patient states today she felt short of breath at home after she came from using the toilet. Patient used her inhaler, and shortly started feeling chest pain. Patient states she does not remember what happened after that, reporting not knowing what hospital was she on, or remembering being transported here. Patient called son, who reached out to EMS, who discovered atrial flutter on site and provided cardizem . Patient admits feeling some headache, but no chest pain or shortness of breath at this time. Patient denies diaphoresis, dizziness, palpitations, nausea, vomiting, diarrhea, constipation, dysuria, hematuria, blood in the feces, changes in weight or appetite. During hospitalization: 62 Y/O female with PMHx of SD and asthma presented to the ED on 01/24 with shortness of breath and chest pain. She was admitted with similar sx on 01/06 to [facility]. In there, she had a normal cardiac cath. She was discharged after a week. During the ride to the ED this time, she had aflutter and EMS provided cardizem. No aflutter was reported from then on. Upon arrival to the ER, patient had multiple imaging done. D-dimer was elevated so a CT was ordered. Her CT was negative for PE but suspicious for bilateral PNA. CXR agreed and showed bilateral PNA. Of note, on the CT, there was a discovery of a left kidney cyst. In light of the d-dimer, patient also had duplex US of lower extremities which was negative. The renal ultrasound confirmed exophytic cyst of the left kidney. It was questionable whether or not she fell prior to EMS, so a CT head was ordered, but turned out to be negative. Finally an ECHO was done, which showed moderate to severe LV systolic dysfunction and a dilated LV. LVEF = 30%. Patient was diagnosed with non- ischemic cardiomyopathy and hospital acquired PNA. Dr. Hollingsworth was the service rig operator following her case, who recommends that patient gets a lifevest for emergent defibrillation. An outpatient 3 month ECHO was also recommended. Dr. Moran was the infectious disease physician on the case and treated her with IV antibiotics. She ultimately ended up being discharged on vantin 200 mg PO q12h x 7 days. During the course of hospitalization, her chest pain and shortness of breath have resolved. Patient has been having adequate oxygen saturation with ambulation. Patient is to return to the ER if symptoms worsen. (*This is only a summary of events. Please look at the full EMR for more details.) Upon discharge patient will need the following prescriptions filled (note will need to emphasized they are affordable: majority): 1) Coreg 3.125mg PO BID (60 tabs/0) 2) Lasix 20mg PO daily (30 tabs/0) 3) Lisinopril 10mg PO daily (30 tabs/0) 4) Aspirin 81mg PO daily (otc available) 5):Vantin 200 mg PO BID x 6 days (12 tabs/0) 6) Bacid 1 tab PO BID x 8 days 7) Albuterol HFA 1 puff inhaled every 6hours as needed for shortness of breathe (1 inhaler/0 refill)-->She will need a voucher for this. She will need education regarding fluid restriction in light of her heart failure. She will need to create a diary of her weight at home to monitor for any weight gain that could be a sign of her heart failure not being under control. She will need a clinic within 1 week of hospitalization. She will need refill of her medications as noted above 1-4, 7, and referral to cardiology for monitor her severe chf. She will need repeat echo in 3 months while being compliant on her medications. Patient recommended to establish care at the [facility] in [place], located on [address] [place] [address]. Phone number: to call for an appointment within one week of hospital discharge. - Date & Time of H&P Date of H&P: 01/30/18 Time of H&P: 13:26 Discharge Exam - Head Exam Head Exam: NORMAL INSPECTION - Respiratory Exam Respiratory Exam: Clear to PA & Lateral, NORMAL BREATHING PATTERN - Cardiovascular Exam Cardiovascular Exam: REGULAR RHYTHM, +S4 - GI/Abdominal Exam GI & Abdominal Exam: Normal Bowel Sounds, Soft, Unremarkable - Extremities Exam Extremities exam: normal inspection - Neurological Exam Neurological exam: Alert, Oriented x3 - Psychiatric Exam Psychiatric exam: Normal Affect, Normal Mood Discharge Plan - Discharge Medications Prescriptions: Albuterol HFA [Ventolin HFA 90 mcg/actuation (8 g)] 1 puff INH Q6H PRN #1 inhaler PRN Reason: Shortness Of Breath Albuterol Sulfate 1 vial NEB Q8 PRN 30 Days vial.neb PRN Reason: Shortness Of Breath Aspirin [Ecotrin] 81 mg PO DAILY #30 tabec Carvedilol [Coreg] 3.125 mg PO BID #60 tab Cefpodoxime [Vantin] 200 mg PO Q12H 6 Days #12 tab Furosemide [Lasix] 20 mg PO DAILY #30 tab Lactobacillus Acidophilus [Bacid Acidophilus] 1 cap PO BID #16 cap Lisinopril [Zestril] 10 mg PO DAILY #30 tab Rosuvastatin Calcium [Crestor] 5 mg PO HS #30 tab - Follow Up Plan Condition: FAIR Disposition: HOME/ ROUTINE Instructions: Heart Failure, Adult (DC), Pneumonia, Adult (DC), Albuterol, Aspirin, Carvedilol, Cefpodoxime, Furosemide, Lactobacillus, Lisinopril, Rosuvastatin Additional Instructions: Patient is stable for discharge home today. Patient was recommended to establish care at the [facility] in [place], located on [address] [place] [address]. Phone number: [phone] to call for an appointment within one week of hospital discharge. Upon follow up she will need refills of her medications and referral to cardiology for monitor her severe chf. She will need repeat echo in 3 months while being compliant on her medications. She is to wear the life vest at all times unless she is in the shower. If there is an issues with the life vest she is to return to the emergency room or call Dr. Hollingsworth (cardiology). She is to take the following medications: 1) Coreg 3.125mg one by mouth twice a day 2) Lasix 20mg one by mouth daily 3) Lisinopril 10mg one by mouth daily 4) Aspirin 81mg one by mouth daily 5) Vantin 200 mg one by mouth twice a day x 6 days (12 tabs/0) 6) Bacid 1 tab one by mouth twice a day x 8 days 7) Albuterol HFA 1 puff inhaled every 6hours as needed for shortness of breathe (1 inhaler/0 refill) 8) Crestor 5mg one by mouth at night Patient's medications were sent to her preferred pharmacy. Patient is to return to the emergency room if symptoms return. All instructions explained tot the patient and she agrees. El paciente se encuentra estable para el yoni hospitalaria adarsh. Se recomend al paciente que estableciera atencin en la [facility] en [place], ubicada en [address] [place] [address]. Nmero de telfono: [phone] para solicitar sea peter dentro de sea semana despus del yoni hospitalaria. Ivanna el seguimiento necesitar recargas de yadira medicamentos y derivacin a cardiologa para controlar figueredo insuficiencia cardaca grave. Necesitar repetir el eco en 3 meses mientras cumpla con yadira medicamentos. Arely debe usar el chaleco salvavidas en todo momento a menos que est en la ducha. Si hay algn problema con el chaleco salvavidas, debe regresar a la kelly de emergencias o llamar al Dr. Hollingsworth (cardiologa). Arely debe maria guadalupe los siguientes medicamentos: 1) Coreg 3.125 mg theodora por va oral dos veces al da 2) Lasix 20mg theodora por va oral al da. 3) Lisinopril 10mg theodora por va oral al da. 4) Aspirina 81 mg sea por va diaria 5) Vantin 200 mg theodora por cada dos veces al da x 6 escalona (12 tab / 0) 6) Bacid 1 lengeta sea por boca dos veces al da x 8 escalona 7) inhalacin de albuterol HFA 1 inhalado cada 6 horas segn sea necesario para la dificultad respiratoria (1 inhalador / 0 recarga) 8) Crestor 5mg theodora por boca en la noche. Los medicamentos de la paciente fueron enviados a figueredo farmacia preferida. El paciente debe regresar a la kelly de emergencias si los sntomas regresan. Todas las instrucciones explicadas a la paciente y arely est de acuerdo. Referrals: [facility] [Outside] Jacklyn Hollingsworth MD [Staff Provider] - Magdaleno Diana Jr., MD [Medical Doctor] -
--- NOTE | 2018-01-30 16:59 | PCM.HF ---
Heart Failure Core Measure - Heart Failure Ejection Fraction: Less Than 40 % ROSARIO Inhibitor Prescribed: Yes Beta-Katt Prescribed: Carvedilol Angiotensin II Receptor Katt Prescribed: No Contraindication/Reason for not providing: on ARB AnticoagulationTherapy for Atrial Fibrillation/Atrialflutter: No Contraindication/Reason for not providing: no hx of a fib Aldosterone Antagonist Prescribed: No Contraindication/Reason for not providing: risk for hyperkalemia Hydralazine Nitrate Prescribed: No Contraindication/Reason for not providing: bp running low Implantable Cardioverter Defibrillator Therapy: No Contraindication/Reason for not providing: on vest trial Cardiac Resynchronization Therapy Prescribed: No Contraindication/Reason for not providing: on vest trail / - Follow up Will be discharged to: Home Follow Up Date (must be within 7 days from discharge): 02/05/18 Follow Up Time: 12:00
--- NOTE | 2018-01-30 19:52 | CARD ---
APPROVED REPORT Date of service: 01/24/2018 EKG Measurement Heart [id number] <Conclusion> Normal sinus rhythm Left bundle branch block Abnormal ECG
--- NOTE | 2018-01-31 19:37 | CARD ---
APPROVED REPORT Date of service: 01/24/2018 EKG Measurement Heart [id number] <Conclusion> Normal sinus rhythm Possible Left atrial enlargement Left bundle branch block Abnormal ECG
--- NOTE | 2018-01-31 20:15 | CARD ---
APPROVED REPORT Date of service: 01/24/2018 EKG Measurement Heart [id number] <Conclusion> Sinus tachycardia Left bundle branch block Abnormal ECG
== END 2018-01-30 13:41 | disposition home or self-care (01) | DRG 194 ==
LOC: C.ER 08:21 → C.9E 14:02 → C.5S 16:38
PROVIDERS: ADMIT Hospitalist; ATTEND Hospitalist
DX: J18.9 Pneumonia, unspecified organism (principal); I48.92 Unspecified atrial flutter; I42.8 Other cardiomyopathies; I50.20 Unspecified systolic (congestive) heart failure; R73.03 Prediabetes; I44.7 Left bundle-branch block, unspecified; J45.909 Unspecified asthma, uncomplicated; N28.1 Cyst of kidney, acquired; N83.209 Unspecified ovarian cyst, unspecified side; R79.1 Abnormal coagulation profile; I25.2 Old myocardial infarction; I11.0 Hypertensive heart disease with heart failure